=== PATIENT | female | born 1940 | race Hispanic/Latino ===

== ENCOUNTER 2016-10-30 10:44 | Emergency (ER) | payer OTHER ==
[2016-10-30] MEDS ORDERED: NORMAL SALINE 10 ML SYRINGE FLUSH IVP PRN (10:49)
[2016-10-30] MEDS ORDERED: Sodium Chloride 0.9% 1,000 ML PRIMARY IV ONE (10:49)
[2016-10-30 11:19] LABS: BILIRUBIN,URINE NEGATIVE (NEG); CLARITY,URINE CLEAR (CLEAR); GLUCOSE, URINE (UA) NEGATIVE (NEG); LEUKOCYTE ESTERASE ,URINE TRACE (NEG); NITRATE,URINE NEGATIVE (NEG); OCCULT BLOOD,URINE MODERATE (NEG); PROTEIN,URINE NEGATIVE (NEG); UROBILINOGEN,URINE 0.2 EU/dL (0.2)
[2016-10-30 11:26] LABS: BASOPHILS # (AUTO) 0.02 10*3/UL; BASOPHILS % (AUTO) 0.3 % (0-1); EOSINOPHILS % (AUTO) 0.6 % (0-8); HEMATOCRIT 37.1 % (37.0-47.0); HEMOGLOBIN 12.4 g/dL (12.0-16.0); IMM GRAN % (AUTO) 0.1 % (0-5); IMM GRAN# (AUTO) 0.01 10*3/UL; LYMPHOCYTES % (AUTO) 19.3 % (10-50); MEAN CORPUSCULAR HEMOGLOBIN 27.6 PG (27-31); MEAN CORPUSCULAR HGB CONC 33.4 g/dL (33-37); MEAN PLATELET VOLUME 9.5 FL (7.4-12.2); MONOCYTES # (AUTO) 0.39 10*3/UL (0.3-0.8); NEUTROPHILS # (AUTO) 5.82 10*3/UL; NEUTROPHILS % (AUTO) 74.7 % (50-80); WHITE BLOOD COUNT 7.79 10^3/uL (4.8-10.8)
[2016-10-30 11:28] LABS: PLATELET MORPHOLOGY COMMENT NORMAL MORPHOLOGY (NORM)
[2016-10-30 11:31] LABS: URINE SAMPLE TYPE CLEAN CATCH URINE
[2016-10-30 11:33] LABS: BACTERIA,URINE FEW; SQUAMOUS EPITHELIAL CELL,UR RARE
[2016-10-30 11:40] LABS: AMYLASE 116 U/L (30-110); ASPARTATE AMINO TRANSFERASE 19 IU/L (8-39); BILIRUBIN,TOTAL 0.8 mg/dL (0.3-1.2); BLOOD UREA NITROGEN 10 mg/dL (7-22); BUN/CREATININE RATIO 16.66 (6-20); CALCIUM 9.1 mg/dL (8.7-10.7); CHLORIDE 95 meq/L (98-112); CREATININE 0.6 mg/dL (0.50-1.20); GLUCOSE 131 mg/dL (78-110); POTASSIUM 4.1 meq/L (3.8-5.2); SODIUM 130 meq/L (135-145); TOTAL PROTEIN 7.5 g/dL (6.1-8.0)
[2016-10-30 11:44] LABS: C-REACTIVE PROTEIN < 0.5 mg/dL (0.0-0.9)
[2016-10-30] MEDS ORDERED: Fleet Enema w/Mineral Oil 133ml RECTAL ONE (11:58)
--- NOTE | 2016-10-30 12:15 | DI ---
HISTORY: Constipation. COMPARISON: None available. FINDINGS: There is abundant feces within the abdomen. There are clips in the right upper quadrant. No obvious free intraperitoneal air is identified. No specific evidence for obstruction. The stoma ch bubble is partially distended with air. IMPRESSION: 1. There is abundant feces within the abdomen. 2. There are clips in the right upper quadrant. 3. The stomach bubble is partially distended with air.
[2016-10-30 13:18] VITALS: RESP 16; TEMP 98.7
--- NOTE | 2016-10-30 22:28 | PDOC ---
Abdomen/Flank HPI - General Chief Complaint: Abdomen Pain Stated Complaint: CONSTIPATED Date Seen by Provider: 10/30/16 Time Seen by Provider: 10:50 Source: POSITIVE: Patient Exam Limitations: POSITIVE: No limitations Nurse's Notes Reviewed & Considered: Yes - History of Present Illness Initial Comments: The patient is a 76-year-old female who presents to the emergency department with the primary complaint of constipation. She states for the past several days she has had the urge to have a bowel movement however has been passing only small pellets. She states that she feels like she has a large amount of stool in her rectum. She tried to did this out on her own however was unable to have a bowel movement. She also has some lower abdominal pain associated with this. She has had nausea with no vomiting. She denies fevers or chills or urinary symptoms. She does take pain medication for previous compression fractures and chronic pain. She also has been taking MiraLAX without any success at alleviating her constipation recently. - Patient Home Medications Home Medications: Home Medications Lisinopril 1 tab ORAL BID #60 tab 05/18/16 Esomeprazole Magnesium [Nexium] 2 cap PO DAILY 05/28/16 Aspirin EC 325 mg PO DAILY #30 tab 05/30/16 Carvedilol [Coreg] 1 tab ORAL BID #60 tab 06/05/16 Denosumab [Prolia] 1 ml SUBCUT every 6 months #0 ml 06/13/16 Levothyroxine Sodium 1 tab ORAL QD #30 tab 07/06/16 Oxycodone HCl/Acetaminophen [Percocet 5-325 Mg Tablet] 1 each PO QID PRN #120 tab 09/29/16 Alprazolam 1 tab PO TID PRN #30 tab 10/19/16 Ondansetron Odt [Zofran ODT] 4 mg SL Q6H PRN #15 tablet 10/21/16 Cephalexin [Keflex] 500 mg PO TID #15 capsule 10/30/16 - Patient Allergies Allergies/Adverse Reactions: Allergies Allergy/AdvReac Type Severity Reaction Status Date / Time mirtazapine [From Remeron] AdvReac Intermediate slept for Verified 10/30/16 10: 59 days and speech deficit Past Medical History - heen HEENT History: Denies History Additional HEENT History: WEARS GLASSES Cardiovascular History: Hypertension Respiratory History: Denies History Gastrointestinal History: GERD, Gallbladder Disease Genitourinary History: Denies History Endocrine History: Hypothyroidism Musculoskeletal History: Osteoporosis Prosthesis or Implant: No Additional Musculoskeletal History: COMPRESSION FXS BACK Neurological History: Denies History Blood Disorders: Denies History Psychiatric History: Anixety Disorders History of Sexually Transmitted Diseases: No Cancer History: Denies History In Past Year Been Physically Harmed or Verbally Threatened: No History of MDRO: No History of Other Communicable Diseases: No Tobacco Use: Never Smoker Alcohol Use: None Substance Use Type: None Previous Surgical History: No Type / Date of Surgery: CHOLECYSTECTOMY Anesthesia Reactions: No Malignant Hyperthermia: No Significant Family History: No pertinent family hx Past Medical History Reviewed: Reviewed - No Changes ROS - Limitations ROS Limitations: No Limitations Constitution: DENIES: Chills, Fever Cardiovascular: REPORTS: Denies Cardiac Symptoms Respiratory: REPORTS: Denies Resp Symptoms Neurological: REPORTS: Denies Neuro Symptoms Gastrointestinal: REPORTS: Abdominal Pain, Nausea, Constipation. DENIES: Vomitting, Black Stools, Bloody Stools Musculoskeletal: REPORTS: Other (Chronic back pain) Genitourinary: REPORTS: Denies Symptoms Eyes: REPORTS: Denies Symptoms ENT: REPORTS: Denies Symptoms Skin: DENIES: Rash Abdominal/Flank Pain PE - General Appearance General Appearance: POSITIVE: Alert, Cooperative, No Acute Distress - HEENT HEENT: POSITIVE: Head Inspection Nml, Eyes Inspection Nml, Ears Inspection Nml, Nose Inspection Nml - Neck Neck: POSITIVE: Normal Inspection - Respiratory Respiratory: POSITIVE: No Respiratory Distress, Breath Sounds Normal - Cardiovascular Cardiovascular: POSITIVE: Regular Rate and Rhythm, Heart Sounds Normal - Abdomen Abdomen: Soft: (All Quadrants), Normal Bowel Sounds: (All Quadrants), No Guarding: (All Quadrants), No Rebound: (All Quadrants) Additional Abdominal Details: She does have tenderness in the lower quadrants bilaterally without guarding or rebound tenderness, no palpable mass - Back Back: NEGATIVE: CVA Tenderness (R), CVA Tenderness (L) - Skin Skin: POSITIVE: Intact, No Rash - Extremities Extremity: Normal ROM: (All Extremities), Normal Inspection: (All Extremities) - Neurological Neurological: POSITIVE: Other (No focal neurologic deficits) Abdomen Progress - Results Reviewed by me Xrays/CTs/US Reviewed by me: Yes Discussed with Radiologist: Yes Radiology Findings: Abdominal x-ray reveals fair amount of stool throughout especially in the lower colon per radiologist, no evidence of obvious obstruction. Lab Results Reviewed: Yes Lab Results:: Laboratory Results 10/30/16 10/30/16 Range/Units 11:07 11:16 WBC 7.79 (4.8-10.8) 10^3/uL RBC 4.50 (4.20-5.40) 10^6/uL Hgb 12.4 (12.0-16.0) g/dL Hct 37.1 (37.0-47.0) % MCV 82.4 (81-99) FL MCH 27.6 (27-31) PG MCHC 33.4 (33-37) g/dL RDW Std Deviation 41.3 (39-50) fL RDW Coeff of Kira 14.0 (11.5-14.5) % Plt Count 224 (140-350) 10*3/uL MPV 9.5 (7.4-12.2) FL Immature Gran % (Auto) 0.1 (0-5) % Neut % (Auto) 74.7 (50-80) % Lymph % (Auto) 19.3 (10-50) % [place] % (Auto) 5.0 (5-15) % Eos % (Auto) 0.6 (0-8) % Baso % (Auto) 0.3 (0-1) % Immature Gran # (Auto) 0.01 10*3/UL Neut # (Auto) 5.82 10*3/UL Lymph # (Auto) 1.50 10*3/uL [place] # (Auto) 0.39 (0.3-0.8) 10*3/UL Eos # (Auto) 0.05 10*3/UL Baso # (Auto) 0.02 10*3/UL WBC Morphology Comment Normal morphology (NORM) Plt Morphology Comment Normal morphology (NORM) RBC Morph Comment Normal morphology (NORM) Sodium 130 L (135-145) meq/L Potassium 4.1 (3.8-5.2) meq/L Chloride 95 L (98-112) meq/L Carbon Dioxide 24 (23-33) meq/L Anion Gap 11 (5-20) BUN 10 (7-22) mg/dL Creatinine 0.6 (0.50-1.20) mg/dL Estimated GFR (>60 ml/min/1.73m(2)) BUN/Creatinine Ratio 16.66 (6-20) Glucose 131 H (78-110) mg/dL Calculated Osmolality 270.0 (267-292) mOsm/kg Calcium 9.1 (8.7-10.7) mg/dL Total Bilirubin 0.8 (0.3-1.2) mg/dL AST 19 (8-39) IU/L ALT 30 (9-52) IU/L Alkaline Phosphatase 55 (38-126) IU/L C-Reactive Protein < 0.5 (0.0-0.9) mg/dL Total Protein 7.5 (6.1-8.0) g/dL Albumin 4.5 (3.5-4.8) g/dL Globulin 3.0 (2.50-4.10) g/dL Albumin/Globulin Ratio 1.50 (1.3-2.0) mg/g Amylase 116 H (30-110) U/L Lipase 181 (23-300) IU/L Ur Collection Type Clean catch urine Urine Color Yellow Urine Clarity Clear (CLEAR) Urine pH 7.0 (5.0-8.5) Ur Specific [place] 1.010 (1.005-1.030) Urine Protein Negative (NEG) mg/dl Urine Glucose (UA) Negative (NEG) mg/dL Urine Ketones Negative (NEG) Urine Occult Blood Moderate H (NEG) Urine Nitrate Negative (NEG) Urine Bilirubin Negative (NEG) Urine Urobilinogen 0.2 (0.2) EU/dL Ur Leukocyte Esterase Trace (NEG) Urine RBC 5-10 (NONE) /hpf Urine WBC 5-10 (NONE) Ur Squamous Epith Cells Rare (NONE) Ur Renal Epithelial Cell None (NONE) Urine Crystals None Urine Bacteria Few (NONE) Urine Casts None (NONE) Urine Mucus None (NONE) Urine Trichomonas None (NONE) Urine Yeast None (NONE) Ur Culture Indicated? Culture set - Patient's Progress MDM / ED Course: The patient's lab work is essentially unremarkable and her abdominal x-rays consistent with constipation. She was given a fleets mineral oil enema with results of a large amount of stool. The patient stated that she felt significantly better. Her constipation is likely secondary to chronic narcotic usage. She was advised to restart MiraLAX regularly along with increased fluid intake. Her urinalysis did reveal some leukocytes and was set up for culture. She was started on Keflex for treatment of potential UTI with culture pending. She is advised return to the emergency room if she develops increased abdominal pain, fever, any worsening or change in symptoms. She will follow-up with primary care in 3-5 days. - Consult Counseled: POSITIVE: Patient, Family, RE: Lab Results, RE: Radiology Results, RE : DX, RE: Need for F/U Patient Care Time - Estimated PCT Patient Care Time (In Minutes): 35 Vital Signs - VS Reviewed Vital Signs Reviewed: Yes Discharge Clinical Impression: Constipation Condition: Stable Prescriptions / Orders: Cephalexin [Keflex] 500 mg PO TID #15 capsule Patient Instructions Given at Discharge: Constipation (ED) Additional Instructions: The constipation is likely secondary to the use of chronic narcotic pain medication. The enema seems to have relieved the immediate issue. Recommend continuation of MiraLAX daily taken with regular fluids. Return to the emergency room if increased abdominal pain, fever, any worsening or change in symptoms. Follow-up with primary care in 7-10 days. Follow Up With: CARYN COREA [Primary Care Provider] -
== END 2016-10-30 14:04 | disposition home or self-care (01) ==
LOC: ER 10:44
DX: K59.00 Constipation, unspecified (principal); R10.32 Left lower quadrant pain; R10.31 Right lower quadrant pain
CPT/HCPCS: 74000; 80053; 81001; 81003; 82150; 83690; 85025; 86140; 87088; 99283; J7030

== ENCOUNTER → 2016-11-14 | Outpatient (CLI) | payer OTHER | LOC: MMPC 11:11 | PROVIDERS: ATTEND Internal Medicine | DX: K59.03 Drug induced constipation (principal); M54.9 Dorsalgia, unspecified; R62.7 Adult failure to thrive; E03.9 Hypothyroidism, unspecified; M81.0 Age-related osteoporosis without current pathological fracture; Z02.89 Encounter for other administrative examinations | CPT/HCPCS: 99214 ==

== ENCOUNTER → 2016-11-16 | Outpatient (CLI) | payer OTHER | LOC: MMPC 11:11 | DX: R30.0 Dysuria (principal) | CPT/HCPCS: 81002; G0463; 99212 ==

== ENCOUNTER → 2016-11-17 | Outpatient (CLI) | payer OTHER | LOC: MOB LAB 07:47 | DX: R30.0 Dysuria (principal); R82.99 Other abnormal findings in urine | CPT/HCPCS: 87077; 87088; 87186 ==

== ENCOUNTER 2016-12-11 11:52 | Emergency (ER) | payer OTHER ==
[2016-12-11] MEDS ORDERED: NORMAL SALINE 10 ML SYRINGE FLUSH IVP PRN (12:33)
[2016-12-11 12:34] VITALS: RESP 16; TEMP 98
[2016-12-11 12:40] LABS: BASOPHILS # (AUTO) 0.01 10*3/UL; BASOPHILS % (AUTO) 0.2 % (0-1); EOSINOPHILS % (AUTO) 0.6 % (0-8); HEMATOCRIT 35.2 % (37.0-47.0); HEMOGLOBIN 11.9 g/dL (12.0-16.0); IMM GRAN % (AUTO) 0 % (0-5); IMM GRAN# (AUTO) 0 10*3/UL; LYMPHOCYTES # (AUTO) 1.38 10*3/uL; LYMPHOCYTES % (AUTO) 27.3 % (10-50); MEAN CORPUSCULAR HEMOGLOBIN 28.5 PG (27-31); MEAN CORPUSCULAR HGB CONC 33.8 g/dL (33-37); MEAN PLATELET VOLUME 9.9 FL (7.4-12.2); MONOCYTES # (AUTO) 0.19 10*3/UL (0.3-0.8); MONOCYTES % (AUTO) 3.8 % (5-15); NEUTROPHILS # (AUTO) 3.44 10*3/UL; NEUTROPHILS % (AUTO) 68.1 % (50-80); RDW COEFFICIENT OF VARIATION 13.5 % (11.5-14.5); RED BLOOD COUNT 4.18 10^6/uL (4.20-5.40); WHITE BLOOD COUNT 5.05 10^3/uL (4.8-10.8)
[2016-12-11 12:43] LABS: PLATELET MORPHOLOGY COMMENT NORMAL MORPHOLOGY (NORM)
[2016-12-11 12:45] LABS: BUN/CREATININE RATIO 23.33 (6-20); CALCIUM 9.6 mg/dL (8.7-10.7); CREATININE 0.6 mg/dL (0.50-1.20); POTASSIUM 4.2 meq/L (3.8-5.2)
[2016-12-11 12:57] LABS: BILIRUBIN,URINE NEGATIVE (NEG); CLARITY,URINE CLEAR (CLEAR); GLUCOSE, URINE (UA) NEGATIVE (NEG); LEUKOCYTE ESTERASE ,URINE TRACE (NEG); NITRATE,URINE NEGATIVE (NEG); OCCULT BLOOD,URINE NEGATIVE (NEG); PH,URINE 6.5 (5.0-8.5); PROTEIN,URINE NEGATIVE (NEG)
[2016-12-11 13:04] LABS: RBC,URINE 0 /hpf; SQUAMOUS EPITHELIAL CELL,UR FEW; URINE SAMPLE TYPE CLEAN CATCH URINE; WBC,URINE 0-1
[2016-12-11 13:05] LABS: BACTERIA,URINE FEW
--- NOTE | 2016-12-11 13:50 | DI ---
XR ABDOMEN KUB UPRIGHT,12/11/2016 12:33 PM: Clinical History: Bloating Previous Exam: October 30, 2016 Findings: 2 views of the abdomen are obtained, and demonstrate a nonobstructive bowel gas pattern. Again noted is a large amount of stool throughout the colon and large amount of air throughout the co keo and small bowel. Patient is status post cholecystectomy. Lung bases are clear. There is a stable compression deformity of the third lumbar vertebral body. Impression: Increasing amount of stool throughout the colon and small bowel.
--- NOTE | 2016-12-11 14:34 | PDOC ---
General Adult HPI - General Chief Complaint: General Medical Stated Complaint: DIZZY AND NOT FEELING WELL Date Seen by Provider: 12/11/16 Time Seen by Provider: 12:00 - History of Present Illness Initial Comment: Patient is a very nice 76-year-old woman who comes into the emergency Department complaining about some weakness anxiety and being out of her Xanax and some constipation. She recently stopped taking MiraLAX because she was on an antibiotic for UTI and has developed substantial constipation since that time. She also is feeling somewhat weak and wiped out she's not sure exactly what's causing that. She does use chronic pain medication as well as a few other medications. She is also concerned as she just ran out of her Xanax and she says be 3 days before she gets any refills of Xanax and she doesn't think she can tolerate being without that either. Have you received a tetanus shot in the past 10 years?: Yes - Patient Home Medications Home Medications: Home Medications Lisinopril 1 tab ORAL BID #60 tab 05/18/16 Esomeprazole Magnesium [Nexium] 2 cap PO DAILY 05/28/16 Aspirin EC 325 mg PO DAILY #30 tab 05/30/16 Denosumab [Prolia] 1 ml SUBCUT every 6 months #0 ml 06/13/16 Levothyroxine Sodium 1 tab ORAL QD #30 tab 07/06/16 Ondansetron Odt [Zofran ODT] 4 mg SL Q6H PRN #15 tablet 10/21/16 Alprazolam 1 tab PO TID PRN #90 tab 11/14/16 Linaclotide [Linzess] 1 cap PO QPM #90 cap 11/14/16 Oxycodone HCl/Acetaminophen [Percocet 5-325 Mg Tablet] 1 each PO QID PRN #120 tab 11/14/16 Fluconazole [Diflucan] 1 tab PO DAILY #7 tab 11/20/16 Alprazolam [Xanax] 0.5 mg PO TID #20 tab 12/11/16 Carvedilol [Coreg] 1 tab ORAL BID #60 tab 12/11/16 Polyethylene Glycol 3350 [Miralax] 17 gm PO DAILY #30 powd.pack 12/11/16 - Patient Allergies Allergies/Adverse Reactions: Allergies Allergy/AdvReac Type Severity Reaction Status Date / Time mirtazapine [From Remeron] AdvReac Intermediate slept for Verified 12/11/16 11: 52 days and speech deficit Past Medical History - heen HEENT History: Denies History Additional HEENT History: WEARS GLASSES Cardiovascular History: Hypertension Respiratory History: Denies History Gastrointestinal History: GERD, Gallbladder Disease Additional Gastrointestinal History: IBS (?) Genitourinary History: Denies History Endocrine History: Hypothyroidism Musculoskeletal History: Osteoporosis Prosthesis or Implant: No Additional Musculoskeletal History: COMPRESSION FXS BACK Neurological History: Denies History Blood Disorders: Denies History Psychiatric History: Anxiety Disorders History of Sexually Transmitted Diseases: No Cancer History: Denies History In Past Year Been Physically Harmed or Verbally Threatened: No History of MDRO: No History of Other Communicable Diseases: No Tobacco Use: Never Smoker Alcohol Use: None Substance Use Type: None Previous Surgical History: No Type / Date of Surgery: CHOLECYSTECTOMY Anesthesia Reactions: No Malignant Hyperthermia: No Significant Family History: No pertinent family hx Past Medical History Reviewed: Reviewed - No Changes ROS - Limitations ROS Limitations: No Limitations Constitution: REPORTS: Denies Symptoms Cardiovascular: REPORTS: Denies Cardiac Symptoms Respiratory: REPORTS: Denies Resp Symptoms Neurological: REPORTS: Denies Neuro Symptoms Musculoskeletal: REPORTS: Denies MS Symptoms General Adult Exam - General Appearance General Appearance: POSITIVE: Alert, Cooperative, No Acute Distress - HEENT HEENT: POSITIVE: Head Inspection Nml, Eyes Inspection Nml, Ears Inspection Nml - Neck Neck: POSITIVE: Normal Inspection - Respiratory Respiratory: POSITIVE: No Respiratory Distress, Breath Sounds Normal - Cardiovascular Cardiovascular: POSITIVE: Regular Rate & Rhythm, No Murmur - Abdomen Abdomen: Soft: (All Quadrants), Normal Bowel Sounds: (All Quadrants) Additional Abdominal Details: She has some mild diffuse tenderness through her abdomen. - Neurological / Psychological Neurological: POSITIVE: Affect Apporpriate, Oriented X3 General Adult Progress - Results Reviewed by me Xrays/CTs/US Reviewed by me: Yes Radiology Findings: Substantial stool burden in the colon and into the small bowel Lab Results Reviewed: Yes Lab Results:: Laboratory Results 12/11/16 12/11/16 Range/Units 12:37 12:45 WBC 5.05 (4.8-10.8) 10^3/uL RBC 4.18 L (4.20-5.40) 10^6/uL Hgb 11.9 L (12.0-16.0) g/dL Hct 35.2 L (37.0-47.0) % MCV 84.2 (81-99) FL MCH 28.5 (27-31) PG MCHC 33.8 (33-37) g/dL RDW Std Deviation 40.9 (39-50) fL RDW Coeff of K[place] 13.5 (11.5-14.5) % Plt Count 236 (140-350) 10*3/uL MPV 9.9 (7.4-12.2) FL Immature Gran % (Auto) 0 (0-5) % Neut % (Auto) 68.1 (50-80) % Lymph % (Auto) 27.3 (10-50) % [place] % (Auto) 3.8 L (5-15) % Eos % (Auto) 0.6 (0-8) % Baso % (Auto) 0.2 (0-1) % Immature Gran # (Auto) 0 10*3/UL Neut # (Auto) 3.44 10*3/UL Lymph # (Auto) 1.38 10*3/uL [place] # (Auto) 0.19 L (0.3-0.8) 10*3/UL Eos # (Auto) 0.03 10*3/UL Baso # (Auto) 0.01 10*3/UL WBC Morphology Comment Normal morphology (NORM) Plt Morphology Comment Normal morphology (NORM) RBC Morph Comment Normal morphology (NORM) Sodium 133 L (135-145) meq/L Potassium 4.2 (3.8-5.2) meq/L Chloride 99 (98-112) meq/L Carbon Dioxide 23 (23-33) meq/L Anion Gap 11 (5-20) BUN 14 (7-22) mg/dL Creatinine 0.6 (0.50-1.20) mg/dL Estimated GFR (>60 ml/min/1.73m(2)) BUN/Creatinine Ratio 23.33 H (6-20) Glucose 134 H (78-110) mg/dL Calculated Osmolality 278.0 (267-292) mOsm/kg Calcium 9.6 (8.7-10.7) mg/dL Ur Collection Type Clean catch urine Urine Color Yellow Urine Clarity Clear (CLEAR) Urine pH 6.5 (5.0-8.5) Ur Specific [place] 1.010 (1.005-1.030) Urine Protein Negative (NEG) mg/dl Urine Glucose (UA) Negative (NEG) mg/dL Urine Ketones Negative (NEG) Urine Occult Blood Negative (NEG) Urine Nitrate Negative (NEG) Urine Bilirubin Negative (NEG) Urine Urobilinogen 1.0 (0.2) EU/dL Ur Leukocyte Esterase Trace (NEG) Urine RBC 0 (NONE) /hpf Urine WBC 0-1 (NONE) Ur Squamous Epith Cells Few (NONE) Ur Renal Epithelial Cell None (NONE) Urine Crystals None Urine Bacteria Few (NONE) Urine Casts None (NONE) Urine Mucus None (NONE) Urine Trichomonas None (NONE) Urine Yeast None (NONE) Ur Culture Indicated? Culture not set - Patient's Progress MDM / ED Course: This patient has relatively benign labs and her x-ray does show substantial constipation. She was given an enema had good result she is willing and able to go back onto MiraLAX therapy and she is feeling much better here after some fluid and an enema. She is also quite concerned about her Xanax I will go ahead and give her a supply Xanax to get her through until she can talk with her primary care provider again. Otherwise she seems to be doing well. 0 Patient Care Time - Estimated PCT Patient Care Time (In Minutes): 30 Vital Signs - Recent Vital Signs Vital Signs: Vital Signs (Last 8 hours) Temp Pulse Resp BP Pulse Ox 12/11/16 11:52 98 F 63 16 148/66 95 - VS Reviewed Vital Signs Reviewed: Yes Discharge Clinical Impression: Generalized anxiety disorder Constipation Qualifiers: Constipation type: unspecified constipation type Qualifier Code: (K59.00) Constipation, unspecified Discharge Disposition: Discharged to Home Condition: Good Prescriptions / Orders: Polyethylene Glycol 3350 [Miralax] 17 gm PO DAILY #30 powd.pack Alprazolam [Xanax] 0.5 mg PO TID #20 tab Patient Instructions Given at Discharge: Constipation (ED), Anxiety (ED) Follow Up With: CARYN COREA [Primary Care Provider] -
== END 2016-12-11 14:40 | disposition home or self-care (01) ==
LOC: ER 11:52
DX: K59.00 Constipation, unspecified (principal); F41.9 Anxiety disorder, unspecified; R53.1 Weakness
CPT/HCPCS: 74020; 80048; 81001; 81003; 85025; 99283

== ENCOUNTER → 2016-12-15 | Outpatient (CLI) | payer OTHER | LOC: MMPC 11:11 | PROVIDERS: ATTEND Internal Medicine | DX: M81.0 Age-related osteoporosis without current pathological fracture (principal) | CPT/HCPCS: G0463; J0897 ==

== ENCOUNTER → 2017-02-19 | Outpatient (CLI) | payer OTHER ==
[2017-02-19 12:24] LABS: BASOPHILS # (AUTO) 0.01 10*3/UL; BASOPHILS % (AUTO) 0.2 % (0-1); EOSINOPHILS # (AUTO) 0.03 10*3/UL; EOSINOPHILS % (AUTO) 0.6 % (0-8); HEMATOCRIT 35.5 % (37.0-47.0); HEMOGLOBIN 11.5 g/dL (12.0-16.0); LYMPHOCYTES # (AUTO) 1.53 10*3/uL; MEAN CORPUSCULAR HEMOGLOBIN 28.3 PG (27-31); MEAN CORPUSCULAR HGB CONC 32.4 g/dL (33-37); MEAN CORPUSCULAR VOLUME 87.2 FL (81-99); MEAN PLATELET VOLUME 9.8 FL (7.4-12.2); MONOCYTES # (AUTO) 0.23 10*3/UL (0.3-0.8); MONOCYTES % (AUTO) 4.9 % (5-15); NEUTROPHILS # (AUTO) 2.84 10*3/UL; NEUTROPHILS % (AUTO) 61.2 % (50-80); PLATELET MORPHOLOGY COMMENT NORMAL MORPHOLOGY (NORM); RBC MORPHOLOGY COMMENT NORMAL MORPHOLOGY (NORM); RED BLOOD COUNT 4.07 10^6/uL (4.20-5.40); WBC MORPHOLOGY COMMENT NORMAL MORPHOLOGY (NORM)
[2017-02-19 12:41] LABS: BUN/CREATININE RATIO 21.66 (6-20); CALCIUM 9.3 mg/dL (8.7-10.7); SERUM ALBUMIN 4.2 g/dL (3.5-4.8)
== END ==
LOC: LAB 12:11
PROVIDERS: ATTEND Internal Medicine
DX: I10 Essential (primary) hypertension (principal); E03.9 Hypothyroidism, unspecified; E78.5 Hyperlipidemia, unspecified; M81.0 Age-related osteoporosis without current pathological fracture; R62.7 Adult failure to thrive
CPT/HCPCS: 36415; 80053; 82306; 84443; 85025

== ENCOUNTER → 2017-02-28 | Outpatient (CLI) | payer OTHER | LOC: MMPC 11:11 | PROVIDERS: ATTEND Internal Medicine | DX: I10 Essential (primary) hypertension (principal); M54.5 Low back pain | CPT/HCPCS: 99214; G0463 ==

== ENCOUNTER → 2017-04-24 | Outpatient (CLI) | payer OTHER | LOC: MMPC 11:11 | PROVIDERS: ATTEND Internal Medicine | DX: I10 Essential (primary) hypertension (principal) | CPT/HCPCS: 99214; G0463 ==

== ENCOUNTER 2017-06-20 11:14 | Emergency (ER) | payer OTHER ==
[2017-06-20 11:51] VITALS: RESP 16; TEMP 98
--- NOTE | 2017-06-20 11:57 | PDOC ---
Abdomen/Flank HPI - General Chief Complaint: Abdomen Pain Stated Complaint: ABDOMINAL DISCOMFORT Date Seen by Provider: 06/20/17 Time Seen by Provider: 11:51 - History of Present Illness Initial Comments: This patient is very nice 77-year-old woman well known to myself from previous visits to the emergency department. Today she comes in saying that she's had no stool for about 3 or 4 days. She feels like she is constipated is only able to get a small stool pebble out every now and then. She would like to have assistance by way of enema. - Patient Home Medications Home Medications: Home Medications Esomeprazole Magnesium [Nexium] 2 cap PO DAILY 05/28/16 Aspirin EC 325 mg PO DAILY #30 tab 05/30/16 Denosumab [Prolia] 1 ml SUBCUT every 6 months #0 ml 06/13/16 Ondansetron Odt [Zofran ODT] 4 mg SL Q6H PRN #15 tablet 10/21/16 Fluconazole [Diflucan] 1 tab PO DAILY #7 tab 11/20/16 Polyethylene Glycol 3350 [Miralax] 17 gm PO DAILY #30 powd.pack 12/11/16 Mirtazapine 1 tab PO QHS #30 tab 12/12/16 Clonazepam 1 tab PO TID PRN #90 tab 02/28/17 Carvedilol [Coreg] 1 tab ORAL BID #60 tab 04/02/17 Lisinopril 1 tab ORAL BID #60 tab 04/13/17 Amlodipine Besylate 1 tab PO DAILY #30 tab 04/24/17 Oxycodone HCl/Acetaminophen [Percocet 5-325 Mg Tablet] 1 each PO QID PRN #120 tab 04/24/17 Levothyroxine Sodium 1 tab ORAL QD #30 tab 05/29/17 - Patient Allergies Allergies/Adverse Reactions: Allergies Allergy/AdvReac Type Severity Reaction Status Date / Time mirtazapine [From Remeron] AdvReac Intermediate slept for Verified 12/11/16 11: 52 days and speech deficit Past Medical History - heen HEENT History: Denies History Additional HEENT History: WEARS GLASSES Cardiovascular History: Hypertension Respiratory History: Denies History Gastrointestinal History: GERD, Gallbladder Disease Additional Gastrointestinal History: IBS (?) Genitourinary History: Denies History Endocrine History: Hypothyroidism Musculoskeletal History: Osteoporosis Prosthesis or Implant: No Additional Musculoskeletal History: COMPRESSION FXS BACK Neurological History: Denies History Blood Disorders: Denies History Psychiatric History: Anxiety Disorders History of Sexually Transmitted Diseases: No LMP: 35 years ago Cancer History: Denies History In Past Year Been Physically Harmed or Verbally Threatened: No History of MDRO: No History of Other Communicable Diseases: No Tobacco Use: Never Smoker Alcohol Use: None Substance Use Type: None Previous Surgical History: No Type / Date of Surgery: CHOLECYSTECTOMY Anesthesia Reactions: No Malignant Hyperthermia: No Significant Family History: No pertinent family hx Past Medical History Reviewed: Reviewed - No Changes ROS - Limitations ROS Limitations: No Limitations Constitution: REPORTS: Denies Symptoms Cardiovascular: REPORTS: Denies Cardiac Symptoms Respiratory: REPORTS: Denies Resp Symptoms Neurological: REPORTS: Denies Neuro Symptoms Abdominal/Flank Pain PE - General Appearance General Appearance: POSITIVE: Alert, Cooperative, No Acute Distress - HEENT HEENT: POSITIVE: Head Inspection Nml, Eyes Inspection Nml - Neck Neck: POSITIVE: Normal Inspection - Respiratory Respiratory: POSITIVE: No Respiratory Distress - Cardiovascular Cardiovascular: POSITIVE: Regular Rate and Rhythm - Abdomen Abdomen: Soft: (All Quadrants), Normal Bowel Sounds: (All Quadrants), Denies Tenderness: (All Quadrants) Abdomen Progress - Patient's Progress MDM / ED Course: Patient was given fleets enema she's feeling much better now. She did have significant stooling results. We discussed different options in regards to keeping her stools more regular and she is to follow-up with her primary care provider Patient Care Time - Estimated PCT Patient Care Time (In Minutes): 25 Vital Signs - Recent Vital Signs Vital Signs: Vital Signs (Last 8 hours) Temp Pulse Resp BP Pulse Ox 06/20/17 11:26 98 F 61 16 141/69 98 - VS Reviewed Vital Signs Reviewed: Yes Discharge Clinical Impression: Acute constipation Discharge Disposition: Discharged to Home Condition: Stable Patient Instructions Given at Discharge: Constipation (ED) Additional Instructions: Increase daily fiber intake Drink plenty of fluids to keep herself regular Consider [id number] MiraLAX 17 g daily to help with constipation Feel free to use [id number] constipation medications such as milk of magnesia or Dulcolax or any others to help with your constipation Follow-up with your primary care provider in the next few days for reevaluation Follow Up With: CARYN COREA [Primary Care Provider] -
[2017-06-20] MEDS ORDERED: Fleet Enema 133ml RECTAL ONE (13:14)
== END 2017-06-20 14:37 | disposition home or self-care (01) ==
LOC: ER 11:14
DX: K59.00 Constipation, unspecified (principal); I10 Essential (primary) hypertension
CPT/HCPCS: 99282

== ENCOUNTER 2017-07-24 10:48 | Observation (INO) ==
[2017-07-24] MEDS ORDERED: ONDANSETRON 4 MG/2 ML VIAL IVP ONE (11:03)
[2017-07-24] MEDS ORDERED: NORMAL SALINE 10 ML SYRINGE FLUSH IVP PRN (11:03)
[2017-07-24] MEDS ORDERED: oxyCODONE/APAP 7.5/325 Tab 1 TAB TAB PO ONE (11:07)
[2017-07-24 11:59] LABS: BASOPHILS # (AUTO) 0.02 10*3/UL; BASOPHILS % (AUTO) 0.4 % (0-1); EOSINOPHILS # (AUTO) 0.19 10*3/UL; EOSINOPHILS % (AUTO) 3.7 % (0-8); Hematocrit [HCT] 34.7 % (37.0-47.0); Hemoglobin [HGB] 11.5 g/dL (12.0-16.0); MEAN CORPUSCULAR HEMOGLOBIN 28.5 PG (27-31); MEAN CORPUSCULAR HGB CONC 33.1 g/dL (33-37); MEAN CORPUSCULAR VOLUME 86.1 FL (81-99); MEAN PLATELET VOLUME 10.8 FL (7.4-12.2); MONOCYTES # (AUTO) 0.28 10*3/UL (0.3-0.8); MONOCYTES % (AUTO) 5.5 % (5-15); NEUTROPHILS # (AUTO) 3.12 10*3/UL; NEUTROPHILS % (AUTO) 60.9 % (50-80); RED BLOOD COUNT 4.03 10^6/uL (4.20-5.40)
[2017-07-24 12:00] LABS: PLATELET MORPHOLOGY COMMENT NORMAL MORPHOLOGY (NORM); RBC MORPHOLOGY COMMENT NORMAL MORPHOLOGY (NORM); WBC MORPHOLOGY COMMENT NORMAL MORPHOLOGY (NORM)
[2017-07-24 12:09] LABS: BLOOD UREA NITROGEN 14 mg/dL (7-22); BUN/CREATININE RATIO 23.33 (6-20); SERUM ALBUMIN 4.3 g/dL (3.5-4.8)
--- NOTE | 2017-07-24 12:11 | EKG ---
[address] [address] Measurements Intervals [place] Rate: 57 P: 89 MS: 200 QRS: 84 QRSD: 93 T: 68 QT: 415 QTc: 408 Interpretive Statements SINUS BRADYCARDIA Compared to ECG 05/28/2016 10:28:57 Sinus rhythm no longer present Electronically Signed On 07-24-17 12:21:39 MDT by Yossi Ford [email or web address]
--- NOTE | 2017-07-24 13:06 | DI ---
CT HEAD SCAN WITHOUT IV CONTRAST, 07/24/2017 11:03 AM : Clinical History: Transient ischemic attack. Previous Exam: 05/28/2016. Scans are obtained from the foramen magnum to the vertex without IV contrast. The 4th, 3rd, and lateral ventricles are of normal size, shape, position, and contour for the patient 's age. There are no abnormal areas of increased or decreased density. There is moderate cerebellar a nd cerebral atrophy. There are no extracerebral mantles or shift of the midline structures. Bone wind ow evaluation is normal. The paranasal sinuses are normal. READIN. There is no evidence of an acute hemorrhagic or bland infarct. 2. Moderate cerebellar and cerebral atrophy. 3. There has been no interval change.
[2017-07-24] MEDS ORDERED: ASPIRIN 81 MG (BABY) CHEWABLE TABLET PO ONE ×3 (14:21→16:45)
--- NOTE | 2017-07-24 15:42 | DI ---
MRI BRAIN SCAN WITHOUT IV CONTRAST, 07/24/2017 2:21 PM: Clinical History: TIA. Previous Exam: None at this facility. Sequences: Sagittal T1; Axial MUNIR T2 and FLAIR. Axial diffusion weighted images with ADC mapping were also performed. The 4th, 3rd, and lateral ventricles are of normal size, shape, position, and contour for this patien t's age. There is no evidence of an acute hemorrhagic or bland infarct. There are a few multiple punc herron periventricular white matter hyperintensities bilaterally that extend into the watershed territo ry, consistent with mild small vessel ischemic disease. This amount of ischemic disease is appropriat e for the patient's age. The cerebellar tonsils are at the level of the foramen magnum but do not ayan cending below the foramen magnum. There is mild cerebellar and mild to moderate cerebral atrophy. Dif fusion weighted imaging with ADC mapping is normal. There are no extracerebral mantels or shift of th e midline structures. The paranasal sinuses are normal. Readin. There is no acute bland or hemorrhagic infarct. Mild small vessel ischemic disease is present. 2. Mild cerebellar and mild to moderate cerebral atrophy. 3. Diffusion weighted imaging with ADC mapping is normal.
--- NOTE | 2017-07-24 16:49 | DI ---
MR ANGIOGRAPHY OF THE [place], 07/24/2017 2:21 PM: Clinical History: TIA. Previous Exam: None at this facility. High resolution axial 3D thin slice time of flight scans are performed for the arterial phase. 3D MIP S reconstructions are obtained. The left vertebral artery is dominant. There is no basilar tip aneurysm or aneurysm arising from the vertebral-basilar branches. There are irregularities bilaterally at the junction between the internal carotid artery at the base of the skull and in the petrous portions of the internal carotid arteries . These irregularities are consistent with plaques but there is no significant stenosis on either juan francisco e. There are no identifiable posterior communicating arteries. The anterior communicating artery is a tretic but normal. The A1and A2, and the M1 through M3 branches bilaterally are normal. Reading: Normal MR angiogram scan of the [place].
--- NOTE | 2017-07-24 16:58 | DI ---
MR ANGIOGRAM OF THE NECK, 07/24/2017 2:21 PM: Clinical History: TIA. Previous Exam: None at this facility. Axial 3D TOF and coronal SSFP images are reconstructed into a 3D MIP format. Scans are performed from below the sternal notch to of the neck to the base of the skull without cont rast. The common carotid arteries are normal from their origins to the bifurcations. The internal and exter nal carotid arteries in the neck region are normal. The internal carotid arteries from the base of th e skull to the cavernous sinuses are also normal except for irregularity is at the junction between t he internal carotid arteries in the neck and the petrous portions in the base of the skull. These wer e shown to represent small plaques without significant stenoses. Both vertebral arteries are visualiz ed and are normal. The left vertebral artery is the dominant vessel. READING: Normal MR angiogram of the carotid and vertebral arteries of the neck. No significant occlusive vascu lar disease is identified.
[2017-07-24] MEDS ORDERED: CLOPIDOGREL 75 MG TABLET PO ONE (17:06)
[2017-07-24] MEDS: oxyCODONE/APAP 7.5/325 Tab 1 TAB TAB PO SCH (19:41)
[2017-07-24] MEDS ORDERED: Mirtazapine Tab 7.5 MG TABLET PO SCH (21:00)
--- NOTE | 2017-07-24 22:38 | PDOC ---
HPI - History of Present Illness Date and Time of Service: 07/24/2017, 3 Chief Complaint: Right facial droop History of Present Illness: This very pleasant 77-year-old female that has failure to thrive, chronic pain, hypertension, amongst other problems. She came in today for evaluation for sudden onset of right facial droop and right arm weakness that was about 10 minutes in duration. It resolved by the time I saw the patient. I saw her earlier today. She does not recall having these symptoms before. She is on an aspirin daily. Her EKG did not show any signs of atrial fibrillation. Her head CT was negative for any acute bleed. I was able to admit the patient and arrange for brain MRI scan and an MRA of the head and neck and they were negative for acute stroke or any carotid artery disease or cerebral vascular disease. The patient does not have any known seizure disorder. Her symptoms have completely resolved. We cannot get an echocardiogram until tomorrow. The patient's blood pressures to hear very well controlled at this time and she is requesting pain medications for her chronic back pain. There were no exacerbating factors and the patient really had no recall of the event. Her was not available shooting at the time of my evaluation. He had just left for home as I had entered the room to see the patient. Aside from the patient being brought in for evaluation at the emergency room, I am not aware of any interventions tried. The symptoms resolved very quickly and the patient was ruled out as a TPA candidate for that reason. Past Medical History Medical History: 1. Failure to thrive with weight loss, currently 76 pounds today. 2. Protein calorie malnutrition. 3. Vitamin B12 deficiency. 4. Hypothyroidism. 5. Polymyalgia rheumatica, on prednisone 10 mg daily. 6. Lumbar compression fractures which caused chronic pain syndrome Surgical History: 1. Cholecystectomy. 2. Bladder surgery. 3. Colonoscopy Pertinent Family History: She has a sister that of breast cancer and positive family history for diabetes. Past Social History: Does not smoke or drink. . Has one son. Tobacco Use: Never Smoker Do you dip or chew tobacco: No In the Past 12 Months, Have Used or Abuse Any of the Following Substance: None Alcohol Use: None Medication / Allergies Home Medications: Home Medications Medication Instructions Recorded Confirmed Type Esomeprazole Magnesium [Nexium] 2 cap PO DAILY 05/28/16 07/24/17 History Aspirin EC 325 mg PO DAILY #30 tab 05/30/16 07/24/17 Rx Denosumab [Prolia] 1 ml SUBCUT every 6 months #0 ml 06/13/16 07/24/17 History Ondansetron Odt [Zofran ODT] 4 mg SL Q6H PRN #15 tab 10/21/16 07/24/17 Rx Polyethylene Glycol 3350 [Miralax] 17 gm PO DAILY #30 powd.pack 12/11/16 Rx Clonazepam 1 tab PO TID PRN #90 tab 02/28/17 06/20/17 Clinic Carvedilol [Coreg] 1 tab ORAL BID #60 tab 04/02/17 07/24/17 Rx Lisinopril 1 tab ORAL BID #60 tab 04/13/17 07/24/17 Rx Amlodipine Besylate 1 tab PO DAILY #30 tab 04/24/17 07/24/17 Rx Oxycodone HCl/Acetaminophen 1 ea PO QID PRN #120 tab 04/24/17 06/20/17 Clinic [Percocet 5-325 Mg Tablet] Levothyroxine Sodium 1 tab ORAL QD #30 tab 05/29/17 07/24/17 Rx Clonazepam 1 tab PO TID PRN #90 tab 06/25/17 07/24/17 Clinic Linaclotide [Linzess] Sample #24 06/25/17 Clinic Oxycodone HCl/Acetaminophen 1 tab PO Q6H #120 tab 06/25/17 07/24/17 Clinic [Oxycodon-Acetaminophen 7.5-325] promethazine 6.25 mg/5 mL syrup 12.5 mg PO Q4-6H PRN #240 ml 07/10/17 07/24/17 Rx Allergies/Adverse Reactions: Allergies 3 Allergy/AdvReac Type Severity Reaction Status Date / Time mirtazapine [From Remeron] AdvReac Intermediate slept for Verified 07/17/17 17: 46 days and speech deficit Review of Systems - Constitutional Constitutional: REPORTS: General Health Poor, Weight Loss (The patient thinks she may have actually gained some weight, although the last weight I have recorded was around 80 pounds.) - Respiratory Respiratory: REPORTS: Negative System Review - Cardiovascular Cardiovascular: REPORTS: Negative System Review - Gastrointestinal Gastrointestinal / Abdominal: REPORTS: Constipation (Has had bad problems with constipation lately and has had a couple of emergency room visits for constipation which required fleets enemas and mag citrate.) - Musculoskeletal Musculoskeletal: REPORTS: Back Pain (Chronic) Exam - Vitals Vital Signs: Vital Signs Temperature 97.5 F Temperature Source Oral Pulse Rate [Apical] 64 Pulse Rate [Pulse Oximeter] 67 Pulse Rate [Pulse Oximeter 60 Bilateral Radial] Pulse Rate 60 Respiratory Rate 16 Blood Pressure [Left Arm] 125/61 Blood Pressure 114/62 Pulse Ox 94 Oxygen Delivery Method Room Air Height 4 ft 10 in Weight 76 lb 9.6 oz - General General Appearance: No Acute Distress, Cooperative, Thin - Head Head Exam: Normal Inspection, Normocephalic, Atraumatic - Eye Eye Exam: POSITIVE: No Scleral Icterus - ENT ENT Exam: POSITIVE: Mucous Membranes Moist - Neck Neck Exam: No Tenderness, No Lymphadenopathy, No Thyromegaly - Respiratory Respiratory Exam: POSITIVE: Clear to Auscultation - Bilaterally, Breathing Non Labored, Normal to Percussion and Palpation - Cardiovascular Cardiovascular Exam: POSITIVE: RRR, No Murmur, No Clicks, No Gallops, No Rubs, No JVD - GI/Abdominal GI/Abdominal Exam: POSITIVE: Normal Bowel Sounds, Non Tender, Non Distended, Soft - Rectal Rectal Exam: POSITIVE: Deferred - External Exam: POSITIVE: Deferred Exam: POSITIVE: Deferred - Extremities Extremities Exam: POSITIVE: No Clubbing Present, No Edema Present, No Cyanosis Present - Back Back Exam: POSITIVE: No CVA Tenderness - Neurological Neurological Exam: POSITIVE: Alert, Oriented x 3, No Facial Droop, Speech Intact / Clear, Moves All Extremities Equally - Psychiatric Psychiatric Exam: POSITIVE: Normal Affect, Normal Mood - Integumentary Integumentary Exam: POSITIVE: Normal Color, Warm, Dry, Intact Results - Labs CBC and BMP: 07/24/17 11:56 07/24/17 11:56 Additional Lab Results: Laboratory Results 07/24/17 07/24/17 Range/Units 11:56 11:56 WBC 5.12 (4.8-10.8) 10^3/uL RBC 4.03 L (4.20-5.40) 10^6/uL Hgb 11.5 L (12.0-16.0) g/dL Hct 34.7 L (37.0-47.0) % MCV 86.1 (81-99) FL MCH 28.5 (27-31) PG MCHC 33.1 (33-37) g/dL RDW Std Deviation 40.3 (39-50) fL RDW Coeff of Kira 13.0 (11.5-14.5) % Plt Count 129 L (140-350) 10*3/uL MPV 10.8 (7.4-12.2) FL Immature Gran % (Auto) 0.2 (0-5) % Neut % (Auto) 60.9 (50-80) % Lymph % (Auto) 29.3 (10-50) % Sampson % (Auto) 5.5 (5-15) % Eos % (Auto) 3.7 (0-8) % Baso % (Auto) 0.4 (0-1) % Immature Gran # (Auto) 0.01 10*3/UL Neut # (Auto) 3.12 10*3/UL Lymph # (Auto) 1.50 10*3/uL Sampson # (Auto) 0.28 L (0.3-0.8) 10*3/UL Eos # (Auto) 0.19 10*3/UL Baso # (Auto) 0.02 10*3/UL WBC Morphology Comment Normal morphology (NORM) Plt Morphology Comment Normal morphology (NORM) RBC Morph Comment Normal morphology (NORM) Sodium 138 (135-145) meq/L Potassium 4.0 (3.8-5.2) meq/L Chloride 101 (98-112) meq/L Carbon Dioxide 25 (23-33) meq/L Anion Gap 12 (5-20) BUN 14 (7-22) mg/dL Creatinine 0.6 (0.50-1.20) mg/dL BUN/Creatinine Ratio 23.33 H (6-20) Glucose 105 (78-110) mg/dL Calculated Osmolality 286.0 (267-292) mOsm/kg Calcium 9.4 (8.7-10.7) mg/dL Total Bilirubin 0.4 (0.3-1.2) mg/dL AST 25 (8-39) IU/L ALT 25 (9-52) IU/L Alkaline Phosphatase 61 (38-126) IU/L Total Protein 7.2 (6.1-8.0) g/dL Albumin 4.3 (3.5-4.8) g/dL Globulin 2.8 (2.50-4.10) g/dL Albumin/Globulin Ratio 1.50 (1.3-2.0) mg/g - EKG Data -: EKG Interpreted by Me Rate: Bradycardia EKG Shows Normal: Sinus Rhythm - Imaging Status: Image Reviewed by Me (I looked at the head CT scan, and it is negative for any acute bleed) Assessment and Plan - Patient Problems (1) Transient ischemic attack Current Visit: Yes Status: Acute Code(s): G45.9 - Transient cerebral ischemic attack, unspecified Qualifiers: Transient cerebral ischemia type: unspecified Qualified Code(s): G45.9 - Transient cerebral ischemic attack, unspecified (2) Chronic pain syndrome Current Visit: Yes Status: Chronic Code(s): G89.4 - Chronic pain syndrome (3) Failure to thrive syndrome, adult Current Visit: Yes Status: Chronic (4) Hypertension Current Visit: Yes Status: Acute Code(s): I10 - Essential (primary) hypertension Qualifiers: Hypertension type: essential hypertension Qualified Code(s): I10 - Essential (primary) hypertension (5) Anxiety Current Visit: Yes Status: Chronic Code(s): F41.9 - Anxiety disorder, unspecified (6) Constipation Current Visit: Yes Status: Chronic Code(s): K59.00 - Constipation, unspecified Qualifiers: Constipation type: drug induced constipation Qualified Code(s): K59.03 - Drug induced constipation - Assessment / Plan Additional Assessment/Plan Details: Given that this patient has been on aspirin, I think she would be a good candidate for Plavix and there was no evidence of bleed so I will start that today. We can consider dual therapy with Plavix and aspirin but given the patient's overall poor health, failure to thrive, and may even be reasonable to just consider Plavix as the hospital stay goes on and as an outpatient as well. Thus far, no radiographic evidence of stroke. Get echocardiogram to make sure there is no cardioembolic source. Continue telemetry monitoring. Check lipid panel. PT and OT. My hope is that if we can complete this workup and there are no further symptoms we could consider discharge tomorrow on Plavix. Blood pressures are well controlled currently and I'm not sure the patient would benefit from continuing all of her antihypertensives, but we can reevaluate that process tomorrow. Continue medications for constipation such as MiraLAX. Pain medications for chronic pain syndrome, Percocet as used at home. The patient is DO NOT RESUSCITATE. I highly agree with that as it would be an absolutely futile procedure in this patient. I discussed the above plan with the patient and she agreed.
[2017-07-25] MEDS: oxyCODONE/APAP 7.5/325 Tab 1 TAB TAB PO SCH ×3 (01:16→13:05)
[2017-07-25 04:57] VITALS: RESP 16
--- NOTE | 2017-07-25 05:17 | PDOC ---
Neuro Symptoms / Deficit HPI - General Chief Complaint: Abdomen Pain Stated Complaint: INCOHERENT Date Seen by Provider: 07/24/17 Time Seen by Provider: 10:15 Source: POSITIVE: Patient, Spouse Exam Limitations: POSITIVE: No limitations Nurse's Notes Reviewed & Considered: Yes EMS Report Reviewed & Considered: Verbal - History of Present Illness Initial Comments: The patient is a 77-year-old female. She is brought to the emergency room by ambulance. Approximately 30 minutes [employer] she was having breakfast with her . She had an abrupt onset of "slurred speech". She states that she was "not able to form my words ". Her , who observed the episode, states that she also had "weakness on the right side of her face". This episode lasted approximately 10 minutes. Upon presentation to the emergency room she is back to normal, except she does complain of a mild headache. She also complains of generalized weakness. Patient has a history of rheumatoid arthritis with generalized pain, for which he takes oxycodone/APAP. She also takes mirtazapine, levothyroxine and lisinopril, amlodipine, clonazepam, Nexium , one baby aspirin daily carvidilol. Body Location Affected: REPORTS: Face, Other (Right facial weakness and speech aphasia as above) Timing: REPORTS: Abrupt Duration: 1/2 hour Severity: Moderate Quality: REPORTS: Other (Mild circumferential headache) Context: DENIES: Insect Bite, Tick Bite, Falling Injury, Head Injury, Other Character of Deficit(s): REPORTS: Facial (Right side of face), Impaired Speech Associated Symptoms: REPORTS: Headache (Circumferential) Usual Ability to Walk/Stand: REPORTS: Walker Use Usual Cognition: REPORTS: Alert & Oriented x3 Similar Symptoms Previously: No Recently seen/treated/hospitalized: No Any Prior Injuries Related to Current Complaint?: No - Patient Home Medications Home Medications: Home Medications Esomeprazole Magnesium [Nexium] 2 cap PO DAILY 05/28/16 Aspirin EC 325 mg PO DAILY #30 tab 05/30/16 Denosumab [Prolia] 1 ml SUBCUT every 6 months #0 ml 06/13/16 Ondansetron Odt [Zofran ODT] 4 mg SL Q6H PRN #15 tab 10/21/16 Polyethylene Glycol 3350 [Miralax] 17 gm PO DAILY #30 powd.pack 12/11/16 Clonazepam 1 tab PO TID PRN #90 tab 02/28/17 Carvedilol [Coreg] 1 tab ORAL BID #60 tab 04/02/17 Lisinopril 1 tab ORAL BID #60 tab 04/13/17 Amlodipine Besylate 1 tab PO DAILY #30 tab 04/24/17 Oxycodone HCl/Acetaminophen [Percocet 5-325 Mg Tablet] 1 ea PO QID PRN #120 tab 04/24/17 Levothyroxine Sodium 1 tab ORAL QD #30 tab 05/29/17 Clonazepam 1 tab PO TID PRN #90 tab 06/25/17 Linaclotide [Linzess] Sample #24 06/25/17 Oxycodone HCl/Acetaminophen [Oxycodon-Acetaminophen 7.5-325] 1 tab PO Q6H #120 tab 06/25/17 promethazine 6.25 mg/5 mL syrup 12.5 mg PO Q4-6H PRN #240 ml 07/10/17 - Patient Allergies Allergies/Adverse Reactions: Allergies 3 Allergy/AdvReac Type Severity Reaction Status Date / Time mirtazapine [From Remeron] AdvReac Intermediate slept for Verified 07/17/17 17: 46 days and speech deficit Past Medical History - heen HEENT History: Hard of Hearing Additional HEENT History: WEARS GLASSES Cardiovascular History: Hypertension Respiratory History: Denies History Gastrointestinal History: GERD, Gallbladder Disease Additional Gastrointestinal History: IBS (?) Genitourinary History: Denies History Endocrine History: Hypothyroidism Musculoskeletal History: Osteoporosis Prosthesis or Implant: No Additional Musculoskeletal History: COMPRESSION FXS BACK Neurological History: Denies History Blood Disorders: Denies History Psychiatric History: Anxiety Disorders History of Sexually Transmitted Diseases: No Female Reproductive History: Denies History LMP: unknown Obstetrical History: Denies History Cancer History: Denies History In Past Year Been Physically Harmed or Verbally Threatened: No History of MDRO: No History of Other Communicable Diseases: No Tobacco Use: Never Smoker Alcohol Use: None In the Past 12 Months, Have Used or Abuse Any Substance: None Previous Surgical History: No Type / Date of Surgery: CHOLECYSTECTOMY Anesthesia Reactions: No Malignant Hyperthermia: No Significant Family History: No pertinent family hx Past Medical History Reviewed: Reviewed - No Changes ROS - Limitations ROS Limitations: No Limitations Constitution: REPORTS: Denies Symptoms Cardiovascular: REPORTS: Denies Cardiac Symptoms Respiratory: REPORTS: Denies Resp Symptoms Neurological: REPORTS: Headache, Facial Asymmetry, Other (Difficulty speaking) Gastrointestinal: REPORTS: Denies GI Symptoms Endocrine: REPORTS: Denies Symptoms Musculoskeletal: REPORTS: Denies MS Symptoms Genitourinary: REPORTS: Denies Symptoms Eyes: REPORTS: Denies Symptoms ENT: REPORTS: Denies Symptoms Skin: REPORTS: Denies Skin Symptoms Lympathic: REPORTS: Denies Lympathic Symptoms Immunologic: POSITIVE: Denies Symptoms Psychiatric: POSITIVE: Denies Psych Symptoms Neuro Symptoms / Deficit Exam - General Appearance General Appearance: POSITIVE: No Acute Distress, Alert - HEENT HEENT: POSITIVE: Head Inspection Nml, Eyes Inspection Nml, Ears Inspection Nml, Nose Inspection Nml, Oral/Dental Inspect. Nml, Pharynx Inspect. Nml, PERRL, EOMI - Pupil Size Pupil Size: 3 mm: Bilateral (PERRLA) - Neuro / Psych Higher Functions: NEGATIVE: Oriented to Person, Oriented to Place, Oriented to Time, Normal Speech, Normal Cognition, Appropriate Mood, Appropriate Affect Cranial Nerves: POSITIVE: Normal As Tested, No Evidence of Acute CVA Cerebellar: POSITIVE: Normal As Tested Peripheral Exam: POSITIVE: Sensation Normal, Motor Normal, Reflexes Normal - Neck Neck: POSITIVE: Supple, Non-Tender, No Carotid Bruit - Respiratory Respiratory: POSITIVE: No Respiratory Distress, Breath Sounds Normal - Cardiovascular Cardiovascular: POSITIVE: Regular Rate & Rhythm, Heart Sounds Normal Peripheral Pulses: Radial (R): 2+, Radial (L): 2+ - Abdomen Abdomen: Soft: (All Quadrants), Normal Bowel Sounds: (All Quadrants), Denies Tenderness: (All Quadrants), No Splenomegaly: (All Quadrants), No Hepatomegaly: (All Quadrants), No Guarding: (All Quadrants), No Rebound: (All Quadrants), No Palpable Pulse: (All Quadrants), No Palpabale Mass: (All Quadrants), No Distention: (All Quadrants), No Rigidity: (All Quadrants) - Skin Skin: POSITIVE: Intact, Normal For Race, Warm, Dry, No Rash - Extremities Extremity: Non-Tender: (All Extremities), Normal ROM: (All Extremities), Normal Inspection: (All Extremities) Neuro Symptom/Deficit Progress - Results Reviewed by me Xrays/CTs/US Reviewed by me: Yes Discussed with Radiologist: No Radiology Findings: CT scan head without contrast read as normal by radiologist. CBC and BMP: 07/24/17 11:56 07/24/17 11:56 EKG Interpreted/Reviewed By Me:: Yes (normal) EKG Interpretation:: POSITIVE: Normal Sinus Rhythm, Normal Rate, Normal Intervals, Normal [place], Normal QRS, Normal ST/T - Patient's Progress Pain Medication Addressed: POSITIVE: Not Applicable School/Work Release Addressed: POSITIVE: Not Applicable Re-Examine Time:: 13:25 Re-Examine Comment: Patient remains asymptomatic throughout her stay in the emergency room Status: POSITIVE: Unchanged Antibiotics Given: No - Consult Consult (If Yes, Name of Consulting MD & Time Called): Yes (Dr. Weiner, hospitalist, [id number]) Consulting MD will see pt:: POSITIVE: [facility] Admit Counseled: POSITIVE: Patient, Family (), RE: Lab Results, RE: Radiology Results, RE: DX, RE: Need for F/U Patient Care Time - Estimated PCT Patient Care Time (In Minutes): 60 Vital Signs - Recent Vital Signs Vital Signs: Vital Signs (Last 8 hours) Temp Pulse Resp BP Pulse Ox 07/25/17 04:56 98.3 F 56 L 16 114/53 97 07/25/17 00:13 98.7 F 60 20 104/54 95 - VS Reviewed Vital Signs Reviewed: Yes Discharge Clinical Impression: Transient ischemic attack Qualifiers: Transient cerebral ischemia type: unspecified Qualified Code(s): G45.9 - Transient cerebral ischemic attack, unspecified Discharge Disposition: Admit to Inpatient Condition: Good Date Decision to Admit to Inpatient: 07/24/17 Time Decision to Admit to Inpatient: 13:25
[2017-07-25] MEDS ORDERED: LEVOTHYROXINE 25 MCG TABLET PO SCH (05:30)
[2017-07-25 05:46] LABS: CHOL/HDL RATIO 5.96 RATIO (0-4.0)
[2017-07-25 07:25] VITALS: O2SAT 96
[2017-07-25] MEDS ORDERED: ENOXAPARIN SODIUM 40 MG/0.4 ML SYRINGE SUBCUT SCH (09:00)
[2017-07-25] MEDS ORDERED: Esomeprazole DR 20mg Capsule PO SCH (09:00)
[2017-07-25] MEDS ORDERED: ASPIRIN 325 MG EC TABLET PO SCH (09:00)
[2017-07-25] MEDS ORDERED: POLYETHYLENE GLYCOL 3350 17 GM POWDER PO SCH (09:00)
[2017-07-25] MEDS ORDERED: CLOPIDOGREL 75 MG TABLET PO SCH (09:00)
[2017-07-25] MEDS ORDERED: ClonazePAM Tab 1 MG TABLET PO PRN (09:15)
[2017-07-25 11:39] VITALS: BP 129/64; TEMP 98.2
--- NOTE | 2017-07-25 11:59 | PDOC(PROG) ---
Date and Time of Service: 07/25/2017 11:58 AM Interval History: Subjective Patient is denying complaint. She doesn't have weakness, no numbness no chest pain and no shortness of breath. Her speech is fine she said. She is not sure why she is here in the hospital. But when I talked to her she did say that her called the medics because she had problem with her speech but that did not last long, she siad she didn't make sense but that's improved. There was no weakness or numbness. Doesn't have any symptoms now. She did walk to the bathroom, to nursing staff did okay Objective : Data - Labs CBC and BMP: 07/24/17 11:56 07/24/17 11:56 Objective : Exam - General General Appearance: No Acute Distress, Cooperative, Thin - Head Head Exam: Normal Inspection - Eye Eye Exam: Normal Appearance - ENT ENT Exam: Normal Exam - Neck Neck Exam: Normal Inspection - Respiratory Respiratory Exam: Clear to Auscultation - Bilaterally - Cardiovascular Cardiovascular Exam: RRR - GI/Abdominal GI/Abdominal Exam: Normal Bowel Sounds, Non Tender - Rectal Rectal Exam: Deferred - External Exam: Deferred - Extremities Extremities Exam: Normal Inspection - Back Back Exam: Normal Inspection - Neurological Neurological Exam: Alert, CN II-XII Intact, No Facial Droop, Speech Intact / Clear, Moves All Extremities Equally - Psychiatric Psychiatric Exam: Normal Affect Assessment and Plan - Patient Problems (1) Transient ischemic attack Status: Acute Comment: This is resolved. There is no evidence of stroke on the MRI. I did speak with physical therapy she is at her baseline. I think she can be discharged home we switched her from aspirin to Plavix. Follow-up with her primary as an outpatient. Code(s): G45.9 - Transient cerebral ischemic attack, unspecified Qualifiers: Transient cerebral ischemia type: unspecified Qualified Code(s): G45.9 - Transient cerebral ischemic attack, unspecified
--- NOTE | 2017-07-25 12:25 | OTI REPORT ---
Thank you for the referral of Halley Joyner. She was seen on 07/24/17 for an occupational therapy inpatient evaluation secondary to a TIA. SUBJECTIVE: The patient is a 77-year-old female who is being seen today secondary to having a TIA. She reports that she has no idea what was going on with her but she was eating breakfast and started slurring her words. Her called the ambulance. The patient says that her spouse assists her with most things around the home but he isn't doing well at this point in time with his health. When asked if she had had those symptoms anytime previously, she said that a couple of years ago she had these symptoms and fell off the commode. The patient does live at the [facility] apartments. She reports she gets no assistance from anyone other than her sisters. The patient's sisters do come and help her if needed. She states that her sisters sometimes do the laundry but sometimes she does it as well. She states her does the cooking; however, he is struggling. She states they do not have any assistance with cleaning and that this is getting more and more difficult to do on her own. The patient's does the grocery shopping as well as the driving. She does have a bathroom set up that is handicap accessible. She has a walk in shower as well as a seat in the tub and a hand held shower hose. The patient states that her sister comes over and helps her shower once in a while when she is not feeling as well as she needs to in order to shower independently. The patient sleeps in a standard bed and she has a front wheeled walker that she has been using. The patient reports this morning she was dizzy. The patient states her [id number] fills her medication box and she takes the medications daily. The patient's foods have been an issue and she is very low weight at this point in time. The patient reports that she coughs a lot and has to take her pills with applesauce and crush them. The patient does have acid reflux and any bread or anything that is sweet or spicy gives her a lot of difficulty. The patient has had her throat stretched in the past. The patient has poor dentition. PAST MEDICAL HISTORY: Past medical history can be found in the patient's medical record. OBJECTIVE FINDINGS: Swallowing abilities: The patient does have poor dentition. She has 8 teeth on the bottom and she does not have any teeth on the top. When speaking to her [id number] later in the day, she reported that her dentures are not fitting her very well and when her gums get sores on them, that is when she quits eating. The patient has requested to be on a pureed diet which would include only textured food including a hard boiled egg and sliced cheese. The pureed diet was discussed with the patient and this is what she would prefer to do to get calories. She wanted no sweet food or liquids. Transfers: The patient requires min assist to keep her balance. Without the walker she was tipsy and needed assistance to stand upright. Activities of daily living: The patient requires mod assist to dress lower extremities secondary to the weakness and fatigue that she has been experiencing. Range of motion: Active range of motion in bilateral upper extremities is approximately 120 degrees. Pain: The patient rates her pain in her shoulders as an 8/10 on the verbal analog scale (0=no pain, 10=worst pain). She states her arthritis is her main limiting factor with participating with activities throughout the day. Strength: Strength for shoulder flexion was 3+/5, extension was 4/5, abduction was 3+/5, adduction was 4/5, biceps flexion/extension was 4/5, and wrist flexion /extension was 3+/5. ASSESSMENT: Problem List: Decreased ability to perform functional transfers and ADLs Decreased upper extremity strength Decreased strength Decreased balance Short-Term Goals: To be met by discharge from inpatient: Patient will be able to dress self independently including set up. Patient will be able to complete a toilet transfer along with toilet hygiene independently. Patient will improve upper extremity strength to 4+/5 throughout in her upper extremities to improve strength for ADLs and functional transfers. Patient will be able to complete shower task with contact guard assist for the transfer and stand by assist for the shower. Patient will be able to demonstrate eating selected diet without difficulty so that she can improve her weight and improve her nutritional intake. Patient and her will be able to prepare meals for the patient and the patient will be independent with feeding and eating abilities. Long-Term Goals: To be met following discharge from inpatient: Patient will be able to return home, demonstrating safety and independence with all functional transfers and simple ADLs. TREATMENT PLAN: Patient will be seen B.I.D during the week and one time per day over the weekend as an inpatient to address the above goals and objectives. INITIAL TREATMENT: Treatment today consisted of the initial evaluation followed by the patient performing a toilet transfer with min assist. The patient then participated in a swallow screen with water. The patient does not aspirate on thin liquids as observed today. The patient has approximately 80% laryngeal elevation. Her poor dentition limits her abilities to masticate boluses. A pureed diet is recommended as this is the safest and the patient requested this type of food. KEVIN
--- NOTE | 2017-07-25 12:39 | OT.PROG ---
Progress Note Progress Note: S: pt states that she just wants to go home and sleep because she can't here in the hospital. O: pt was seen in her room in the a.m. and was in supine position in chair. She completed transition from supine in chair to sitting on edge of chair Ind. She completed ther ex with BUE's x15 to increase strength with RTb. She also completed x10 sit to stands Ind and completed standing marches x15 with BLE's Ind. She remained standing for up to 5 min to work on standing endurance. Pt was left upright in chair and completed all chair mobility Ind. A: pt completed activities great, even completing sit to stands Ind. She may continue to benefit from therapy for strengthening. P: continue per plan of care
--- NOTE | 2017-07-25 15:54 | DCSUMMARY ---
Hospitalization Summary Admit Date: 07/24/17 Discharge Date: 07/25/17 Hospital Course: Discharge diagnoses 1. Possible TIA 2. Failure to thrive 3. Hypothyroidism 4. History of Polymyalgia rheumatica 5. History of lumbar compression fracture which cause chronic pain syndrome on pain medications 6. Hypertension Hospital course This is a 77 years old female with medical history significant for history of failure to thrive, chronic pain, hypertension who was brought to the hospital because of right facial droop and right arm weakness that lasted for about 10 minutes and resolved on its own. She was admitted to the hospital by Dr. Weiner please see his note. Patient aspirin was switched to Plavix. She had a an MR I and an MRA of the brain there was no evidence of stroke. The next day she denied complaint initially she did not recall why she ended up here in the hospital but after direct questioning she remembered that her called the medics because her speech did not make sense to him. She denied though weakness or numbness. The speech issue resolved. She did not have any symptoms she did walk with physical therapy and they thought that she is at her baseline. We thought that she could be discharged home switched from aspirin to Plavix and follow-up with her primary. I did tell her to continue checking her blood pressure and resume her blood pressure medications. She need follow-up with her primary. Laboratory Results 07/24/17 07/24/17 07/25/17 Range/Units 11:56 11:56 04:35 WBC 5.12 (4.8-10.8) 10^3/uL RBC 4.03 L (4.20-5.40) 10^6/uL Hgb 11.5 L (12.0-16.0) g/dL Hct 34.7 L (37.0-47.0) % MCV 86.1 (81-99) FL MCH 28.5 (27-31) PG MCHC 33.1 (33-37) g/dL RDW Std Deviation 40.3 (39-50) fL RDW Coeff of Kira 13.0 (11.5-14.5) % Plt Count 129 L (140-350) 10*3/uL MPV 10.8 (7.4-12.2) FL Immature Gran % (Auto) 0.2 (0-5) % Neut % (Auto) 60.9 (50-80) % Lymph % (Auto) 29.3 (10-50) % Love % (Auto) 5.5 (5-15) % Eos % (Auto) 3.7 (0-8) % Baso % (Auto) 0.4 (0-1) % Immature Gran # (Auto) 0.01 10*3/UL Neut # (Auto) 3.12 10*3/UL Lymph # (Auto) 1.50 10*3/uL Love # (Auto) 0.28 L (0.3-0.8) 10*3/UL Eos # (Auto) 0.19 10*3/UL Baso # (Auto) 0.02 10*3/UL WBC Morphology Comment Normal morphology (NORM) Plt Morphology Comment Normal morphology (NORM) RBC Morph Comment Normal morphology (NORM) Sodium 138 (135-145) meq/L Potassium 4.0 (3.8-5.2) meq/L Chloride 101 (98-112) meq/L Carbon Dioxide 25 (23-33) meq/L Anion Gap 12 (5-20) BUN 14 (7-22) mg/dL Creatinine 0.6 (0.50-1.20) mg/dL BUN/Creatinine Ratio 23.33 H (6-20) Glucose 105 (78-110) mg/dL Calculated Osmolality 286.0 (267-292) mOsm/kg Calcium 9.4 (8.7-10.7) mg/dL Total Bilirubin 0.4 (0.3-1.2) mg/dL AST 25 (8-39) IU/L ALT 25 (9-52) IU/L Alkaline Phosphatase 61 (38-126) IU/L Total Protein 7.2 (6.1-8.0) g/dL Albumin 4.3 (3.5-4.8) g/dL Globulin 2.8 (2.50-4.10) g/dL Albumin/Globulin Ratio 1.50 (1.3-2.0) mg/g Triglycerides 97 (44-200) mg/dL Cholesterol 197 (120-200) mg/dL LDL Cholesterol, Calc 144.600 mg/dL VLDL Cholesterol 19 (0-40) mg/dL HDL Cholesterol 33 L (40-150) mg/dL Cholesterol/HDL Ratio 5.96 H (0-4.0) RATIO TSH Free T4 (0.93-1.71) ng/dL 07/25/17 Range/Units 04:35 WBC (4.8-10.8) 10^3/uL RBC (4.20-5.40) 10^6/uL Hgb (12.0-16.0) g/dL Hct (37.0-47.0) % MCV (81-99) FL MCH (27-31) PG MCHC (33-37) g/dL RDW Std Deviation (39-50) fL RDW Coeff of Kira (11.5-14.5) % Plt Count (140-350) 10*3/uL MPV (7.4-12.2) FL Immature Gran % (Auto) (0-5) % Neut % (Auto) (50-80) % Lymph % (Auto) (10-50) % Love % (Auto) (5-15) % Eos % (Auto) (0-8) % Baso % (Auto) (0-1) % Immature Gran # (Auto) 10*3/UL Neut # (Auto) 10*3/UL Lymph # (Auto) 10*3/uL Love # (Auto) (0.3-0.8) 10*3/UL Eos # (Auto) 10*3/UL Baso # (Auto) 10*3/UL WBC Morphology Comment (NORM) Plt Morphology Comment (NORM) RBC Morph Comment (NORM) Sodium (135-145) meq/L Potassium (3.8-5.2) meq/L Chloride (98-112) meq/L Carbon Dioxide (23-33) meq/L Anion Gap (5-20) BUN (7-22) mg/dL Creatinine (0.50-1.20) mg/dL BUN/Creatinine Ratio (6-20) Glucose (78-110) mg/dL Calculated Osmolality (267-292) mOsm/kg Calcium (8.7-10.7) mg/dL Total Bilirubin (0.3-1.2) mg/dL AST (8-39) IU/L ALT (9-52) IU/L Alkaline Phosphatase (38-126) IU/L Total Protein (6.1-8.0) g/dL Albumin (3.5-4.8) g/dL Globulin (2.50-4.10) g/dL Albumin/Globulin Ratio (1.3-2.0) mg/g Triglycerides (44-200) mg/dL Cholesterol (120-200) mg/dL LDL Cholesterol, Calc mg/dL VLDL Cholesterol (0-40) mg/dL HDL Cholesterol (40-150) mg/dL Cholesterol/HDL Ratio (0-4.0) RATIO TSH Pending Free T4 1.02 (0.93-1.71) ng/dL Discharge instruction Diet regular Activity as started Medications Home Medications Medication Instructions Recorded Confirmed Type Esomeprazole Magnesium [Nexium] 2 cap PO DAILY 05/28/16 07/24/17 History Denosumab [Prolia] 1 ml SUBCUT every 6 months #0 ml 06/13/16 07/24/17 History Ondansetron Odt [Zofran ODT] 4 mg SL Q6H PRN #15 tab 10/21/16 07/24/17 Rx Polyethylene Glycol 3350 [Miralax] 17 gm PO DAILY #30 powd.pack 12/11/16 Rx Clonazepam 1 tab PO TID PRN #90 tab 02/28/17 06/20/17 Clinic Carvedilol [Coreg] 1 tab ORAL BID #60 tab 04/02/17 07/24/17 Rx Lisinopril 1 tab ORAL BID #60 tab 04/13/17 07/24/17 Rx Amlodipine Besylate 1 tab PO DAILY #30 tab 04/24/17 07/24/17 Rx Oxycodone HCl/Acetaminophen 1 ea PO QID PRN #120 tab 04/24/17 06/20/17 Clinic [Percocet 5-325 Mg Tablet] Levothyroxine Sodium 1 tab ORAL QD #30 tab 05/29/17 07/24/17 Rx Clonazepam 1 tab PO TID PRN #90 tab 06/25/17 07/24/17 Clinic Linaclotide [Linzess] Sample #24 06/25/17 Clinic Oxycodone HCl/Acetaminophen 1 tab PO Q6H #120 tab 06/25/17 07/24/17 Clinic [Oxycodon-Acetaminophen 7.5-325] promethazine 6.25 mg/5 mL syrup 12.5 mg PO Q4-6H PRN #240 ml 07/10/17 07/24/17 Rx Clopidogrel [Plavix] 75 mg PO DAILY #30 tab 07/25/17 Rx Follow-up with her PCP in 1-2 weeks Condition at discharge was stable for discharge Exam - Vitals Vital Signs: Vital Signs Temperature 98.2 F Temperature Source Temporal Artery Scan Pulse Rate [Apical] 64 Pulse Rate [Pulse Oximeter] 64 Pulse Rate [Pulse Oximeter 60 Bilateral Radial] Pulse Rate 60 Respiratory Rate 16 Blood Pressure [Left Arm] 129/64 Blood Pressure 114/62 Pulse Ox 96 Oxygen Delivery Method Room Air Height 4 ft 10 in Weight 76 lb 11.2 oz Patient Problems - Patient Problem List (1) Transient ischemic attack Status: Acute Code(s): G45.9 - Transient cerebral ischemic attack, unspecified Qualifiers: Transient cerebral ischemia type: unspecified Qualified Code(s): G45.9 - Transient cerebral ischemic attack, unspecified Category: Medical
--- NOTE | 2017-07-26 12:08 | PTI REPORT ---
Thank you for the referral of Halley Joyner. She was seen on 07/24/17 for an inpatient evaluation secondary to a TIA and weakness. SUBJECTIVE: The patient is a 77-year-old female who states that when she was eating breakfast this morning, she was trying to speak with her but was slurring her words. He became concerned and called 911 and she was taken by ambulance to the hospital. The patient states that she had a similar incident happen approximately 1-2 years ago. The patient states that she's doing better but she does complain of feeling nauseous. The patient states that she lives in the [facility] with her and prior to this incident she was walking with her wheeled walker and was also receiving some assistance from her sisters in town with help for ADLs as needed. The patient states that she feels more weak on her left side vs. her right and this has been a chronic problem for her. The patient states that she suffers from neck pain as she has a history of osteoporosis and osteoarthritis. The patient denies any falls in the last few months. PAST MEDICAL HISTORY: Past medical history can be found in the patient's medical record. OBJECTIVE FINDINGS: General observations: The patient is alert and oriented to setting upon PT arrival. 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 Transfers: The patient transferred to chair, sitting upright. The patient required contact guard assist x1 for safety with her transfer. The patient states she has a difficult time getting comfortable in a seated position secondary to her pain. Strength: The patient's bilateral lower extremity strength was tested in a seated position. Her right lower extremity strength is 4/5 and her left lower extremity strength is 3/5. Ambulation: The patient was issued a walker with wheels as she states her one at home is not in good condition and she is most safe when utilizing a walker with wheels due to her weakness and poor balance. ASSESSMENT: The patient has fair rehab potential secondary to her age and past medical history. Problem List: Decreased endurance/activity tolerance Weakness Short-Term Goals: To be met by discharge from inpatient: Patient will be able to transfer from bed to stand independently and safely. Patient will be able to ambulate at least 100 feet with front wheeled walker and stand by assist x1 and do so safely. Long-Term Goals: To be met following discharge from inpatient: Patient will be an appropriate candidate for outpatient or home health therapies in order to improve her overall strength and mobility. TREATMENT PLAN: Patient will be seen B.I.D during the week and one time per day over the weekend as an inpatient for working on independence and safety with transfers, improving activity tolerance and endurance, and increasing ambulation distance and safety with front wheeled walker. INITIAL TREATMENT: Treatment today consisted of the initial evaluation activities only. KEVIN
--- NOTE | 2017-07-27 14:20 | PT AM DAY ---
Diagnosis : TIA AM - Physical Therapy S: The patient states she is doing okay today. She just feels a little lightheaded but overall she feels like she is getting better. O: Treatment today consisted of therapeutic exercises in the patient's room including ambulating to the bathroom where the patient was able to toilet and hygiene independently. The patient then performed bilateral lower extremity strengthening including long arc quads, seated marches, pillow squeezes, ankle pumps, sit to stands, straight leg raises, hip abduction/adduction, quad sets, and heel slides. The patient was left sitting in chair with call button within reach. Nursing was notified. A: Overall the patient did very well with all activities today. It is noted that she does have small knee flexion contractures bilaterally. She does have some weakness with ambulating but otherwise is doing well. P: Continue seeing patient BID during the week and one time per day over the weekend for transfers, ambulation, and range of motion/strengthening exercises. KEVIN
== END 2017-07-25 14:12 | disposition home or self-care (01) ==
LOC: ER 10:48 → MED/SURG 10:48
PROVIDERS: ADMIT Family Medicine; ATTEND Family Medicine

== ENCOUNTER 2018-12-08 19:42 | Inpatient (IN) ==
--- NOTE | 2018-12-08 20:20 | EKG ---
[address] [address] Measurements Intervals [place] Rate: 85 P: 67 SD: 183 QRS: 63 QRSD: 81 T: 39 QT: 343 QTc: 385 Interpretive Statements SINUS RHYTHM Compared to ECG 07/24/2017 12:10:55 Sinus bradycardia no longer present No acute injury pattern Electronically Signed On 12-09-18 08:08:03 [facility] by Arun Velez MD [email or web address]
[2018-12-08 20:32] LABS: BASOPHILS # (AUTO) 0.01 10*3/UL; BASOPHILS % (AUTO) 0.2 % (0-1); EOSINOPHILS # (AUTO) 0.04 10*3/UL; EOSINOPHILS % (AUTO) 0.7 % (0-8); Hematocrit [HCT] 37.1 % (37.0-47.0); MEAN CORPUSCULAR HGB CONC 32.3 g/dL (33-37); MEAN CORPUSCULAR VOLUME 86.7 FL (81-99); MEAN PLATELET VOLUME 9.6 FL (7.4-12.2); MONOCYTES # (AUTO) 0.32 10*3/UL (0.3-0.8); MONOCYTES % (AUTO) 5.8 % (5-15); NEUTROPHILS % (AUTO) 63.9 % (50-80); RED BLOOD COUNT 4.28 10^6/uL (4.20-5.40)
[2018-12-08 20:40] LABS: PLATELET MORPHOLOGY COMMENT NORMAL MORPHOLOGY (NORM); RBC MORPHOLOGY COMMENT NORMAL MORPHOLOGY (NORM); WBC MORPHOLOGY COMMENT NORMAL MORPHOLOGY (NORM)
[2018-12-08 20:41] LABS: BLOOD UREA NITROGEN 10 mg/dL (7-22); BUN/CREATININE RATIO 16.66 (6-20); LIPASE 68 IU/L (23-300); SERUM ALBUMIN 4.5 g/dL (3.5-4.8)
--- NOTE | 2018-12-08 21:11 | DI ---
AP CHEST X-RAY, 12/08/2018 8:17 PM : Clinical History: Chest pain. Previous Exam: None at this facility. Soft Tissues: No acute soft tissue abnormality. The patient is rotated toward her right side. Bones: Normal. Heart: Normal heart. Lungs: No infiltrates. Effusion(s): None. Mediastinum: Normal mediastinum. Nodules: No pulmonary nodules. Reading: Normal chest x-ray.
--- NOTE | 2018-12-08 21:26 | PDOC ---
HPI - History of Present Illness History of Present Illness: This very nice 78-year-old the female with multiple medical issues including chronic pain, hypertension, polymyalgia rheumatica on prednisone chronically and multiple lumbar compression fractures comes in with her complaining of upper abdominal pain and generalized aches and arthritic pain her and her both called the ambulance because of the multiple pain complaints and also unable take care of themselves Past Medical History Medical History: 1. Failure to thrive with weight loss, currently 76 pounds today. 2. Protein calorie malnutrition. 3. Vitamin B12 deficiency. 4. Hypothyroidism. 5. Polymyalgia rheumatica, on prednisone 10 mg daily. 6. Lumbar compression fractures which caused chronic pain syndrome Surgical History: 1. Cholecystectomy. 2. Bladder surgery. 3. Colonoscopy Pertinent Family History: She has a sister that of breast cancer and positive family history for diabetes. Past Social History: Does not smoke or drink. . Has one son. Tobacco Use: Never Smoker In the Past 12 Months, Have Used or Abuse Any of the Following Substance: None Medication / Allergies Home Medications: Home Medications Medication Instructions Recorded Confirmed Type Denosumab [Prolia] 1 ml SUBCUT every 6 months #0 ml 06/13/16 10/31/17 History Polyethylene Glycol 3350 [Miralax] 17 gm PO DAILY #30 powd.pack 12/11/16 10/31/17 Rx Clonazepam 1 tab PO TID PRN #90 tab 02/28/17 06/20/17 Clinic Oxycodone HCl/Acetaminophen 1 ea PO QID PRN #120 tab 04/24/17 06/20/17 Clinic [Percocet 5-325 Mg Tablet] esomeprazole magnesium 20 mg 40 mg PO QDAY cap 08/01/17 10/31/17 History capsule,delayed release clopidogrel 75 mg tablet 75 mg PO QDAY #30 tab 12/20/17 Rx levothyroxine 25 mcg tablet 25 mcg PO QDAY #30 tab 12/20/17 Rx amlodipine 5 mg tablet 5 mg PO QDAY #30 tab 05/06/18 Rx carvedilol 25 mg tablet 25 mg PO BID #60 tab 08/05/18 Rx lisinopril 40 mg tablet 40 mg PO BID #60 tab 10/17/18 Rx clonazepam 0.5 mg tablet 0.5 mg PO TID PRN #90 tab 11/25/18 Rx oxycodone-acetaminophen 5 mg-325 1 tab PO QID PRN #120 tab 11/25/18 Rx mg tablet Allergies/Adverse Reactions: Allergies Allergy/AdvReac Type Severity Reaction Status Date / Time mirtazapine [From Remeron] AdvReac Intermediate slept for Verified 09/03/18 10:54 days and speech deficit Review of Systems - Review of Systems All Systems: Reviewed & No Additional Complaints Except as Stated (Patient is a very poor historian and doesn't feel like talking at present time) - Respiratory Respiratory: DENIES: Negative System Review, Cough, Sputum, Dyspnea At Rest, Dyspnea with Exertion, Pleuritic Pain, Hemoptysis, Wheezing, Other, See HPI - Cardiovascular Cardiovascular: DENIES: Negative System Review, Chest Pain, Edema, Syncope, Palpitations, Orthopnea, Paroxysmal Nocturnal Dyspnea, Other, See HPI - Gastrointestinal Gastrointestinal / Abdominal: REPORTS: Abdominal Pain (Epigastric abdominal pain no guarding or rebound) Exam - General General Appearance: No Acute Distress, Cooperative - Head Head Exam: Normal Inspection, Normocephalic, Atraumatic - Eye Eye Exam: POSITIVE: PERRL, EOMI - Neck Neck Exam: Normal Inspection, Full ROM, No Tenderness, No Lymphadenopathy, No Thyromegaly, JVP is not Raised - Respiratory Respiratory Exam: POSITIVE: Clear to Auscultation - Bilaterally, Decreased Breath Sounds - Cardiovascular Cardiovascular Exam: POSITIVE: RRR, No Murmur, No Clicks, No Gallops, No Rubs, PMI Non-Displaced - GI/Abdominal Additional GI/Abdominal Exam Details: I cannot elucidate any abdominal pain on physical exam in any quadrant - Extremities Extremities Exam: POSITIVE: No Clubbing Present, No Edema Present, No Cyanosis Present - Neurological Neurological Exam: POSITIVE: Alert, Oriented x 3, No Facial Droop, Speech Intact / Clear - Psychiatric Psychiatric Exam: POSITIVE: Normal Affect - Integumentary Additional Integumentary Exam Details: Skin is very frail Results - Labs CBC and BMP: 12/08/18 20:17 12/08/18 20:05 Assessment and Plan - Patient Problems (1) Hypokalemia Current Visit: Yes Status: Acute Comment: Replace with IV fluids insert Mack catheter for acute output Code(s): E87.6 - Hypokalemia (2) Dehydration Current Visit: Yes Status: Acute Comment: Normal saline 75 an hour with 20 K Code(s): E86.0 - Dehydration (3) Abdominal pain Current Visit: No Status: Acute Comment: CT scan of the abdomen and pelvis are in progress Code(s): R10.9 - Unspecified abdominal pain (4) Generalized weakness Current Visit: Yes Status: Acute Comment: Consult PT OT and case management for possible placement if necessary Code(s): R53.1 - Weakness
[2018-12-08 21:51] LABS: BILIRUBIN,URINE NEGATIVE (NEG); CLARITY,URINE CLEAR (CLEAR); COLOR,URINE YELLOW; GLUCOSE, URINE (UA) NEGATIVE (NEG); OCCULT BLOOD,URINE MODERATE (NEG); PROTEIN,URINE NEGATIVE (NEG); UROBILINOGEN,URINE 0.2 mg/dL (0.2)
[2018-12-08 21:52] LABS: BACTERIA,URINE RARE; RBC,URINE 0-1 /hpf; SQUAMOUS EPITHELIAL CELL,UR RARE; URINE CRYSTALS FEW; URINE SAMPLE TYPE CATH SPECIMEN; WBC,URINE 0-1
[2018-12-08] MEDS ORDERED: ONDANSETRON 4 MG/2 ML VIAL IVP PRN (22:58)
[2018-12-08] MEDS ORDERED: LIDOCAINE W/ SODIUM BICARB 0.5 ML SYR SUBD PRN (22:58)
[2018-12-08] MEDS ORDERED: LIDOCAINE HCL 2 % 10 ML JELLY URO-JECT TOPICAL PRN (22:58)
[2018-12-08] MEDS ORDERED: Non-Formulary Drug (Denosumab [Prolia] 1 ML) SUBCUT SCH (22:58)
[2018-12-08] MEDS ORDERED: CALCIUM CARBONATE 500 MG (TUMS) CHEWABLE TABLET PO PRN (22:58)
--- NOTE | 2018-12-08 22:58 | DI ---
EXAM: CT Abdomen and Pelvis With Intravenous Contrast CLINICAL HISTORY: Abdominal pain TECHNIQUE: Axial computed tomography images of the abdomen and pelvis with intravenous contrast. COMPARISON: CT abdomen and pelvis dated 07/17/2017 FINDINGS: Lung bases: Bibasilar atelectasis. ABDOMEN: Liver: Unremarkable. Gallbladder and bile ducts: Mild intra-and extrahepatic bile duct dilatation likely secondary prior cholecystectomy. Pancreas: Unremarkable. Spleen: Unremarkable. Adrenals: Unremarkable. Kidneys and ureters: Unremarkable. Stomach and bowel: Unremarkable. PELVIS: Appendix: Appendix is unremarkable. Bladder: Urinary bladder is distended with trace amount gas, likely secondary to recent instrumentation. Reproductive: Unremarkable as visualized. ABDOMEN and PELVIS: Intraperitoneal space: Unremarkable. Bones/joints: Age-indeterminate mild height loss of T10 vertebral body. Remote compression deformities of L1-S1. No dislocation. Soft tissues: Unremarkable. Vasculature: Vascular calcifications. No abdominal aortic aneurysm. Lymph nodes: Unremarkable. IMPRESSION: 1. Distended urinary bladder. Trace gas, likely secondary recent instrumentation. 2. Age-indeterminate compression deformity with mild height loss of the T10 vertebral body.
[2018-12-08] MEDS: oxyCODONE-ACETAMINOPHEN 5-325 TAB PO PRN (23:32)
[2018-12-09 05:12] LABS: BASOPHILS # (AUTO) 0.01 10*3/UL; BASOPHILS % (AUTO) 0.1 % (0-1); EOSINOPHILS # (AUTO) 0.03 10*3/UL; EOSINOPHILS % (AUTO) 0.3 % (0-8); Hematocrit [HCT] 39.4 % (37.0-47.0); Hemoglobin [HGB] 12.9 g/dL (12.0-16.0); LYMPHOCYTES # (AUTO) 2.49 10*3/uL; MEAN CORPUSCULAR HEMOGLOBIN 27.8 PG (27-31); MEAN CORPUSCULAR HGB CONC 32.7 g/dL (33-37); MEAN CORPUSCULAR VOLUME 84.9 FL (81-99); MEAN PLATELET VOLUME 9.8 FL (7.4-12.2); MONOCYTES # (AUTO) 0.56 10*3/UL (0.3-0.8); MONOCYTES % (AUTO) 6.3 % (5-15); NEUTROPHILS # (AUTO) 5.73 10*3/UL; RED BLOOD COUNT 4.64 10^6/uL (4.20-5.40)
[2018-12-09 05:17] LABS: PLATELET MORPHOLOGY COMMENT NORMAL MORPHOLOGY (NORM); RBC MORPHOLOGY COMMENT NORMAL MORPHOLOGY (NORM); WBC MORPHOLOGY COMMENT NORMAL MORPHOLOGY (NORM)
[2018-12-09 05:23] LABS: BLOOD UREA NITROGEN 8 mg/dL (7-22); SERUM ALBUMIN 4.5 g/dL (3.5-4.8)
--- NOTE | 2018-12-09 05:38 | PDOC ---
General Adult HPI - General Chief Complaint: Chest Pain Stated Complaint: weakness, abdominal pain, nausea Date Seen by Provider: 12/08/18 Time Seen by Provider: 19:50 Source: POSITIVE: Patient, Spouse, EMS Exam Limitations: POSITIVE: No limitations Nurse's Notes Reviewed & Considered: Yes EMS Report Reviewed & Considered: Verbal - History of Present Illness Initial Comment: The patient is a 78-year-old female who arrives, along with her , by ambulance. The patient lives with her elderly and frail . They have become progressively less able to manage at home. Ambulance was called to bring both patient's to the emergency room. The patient reports an approximately 10 day history of progressive weakness and unsteadiness. She complains of feeling very "dizzy and shaky ". She has had nausea without vomiting. She states that she has had some left upper abdominal pain over the last day or so. No known fevers or chills. No vomiting. No focal neurologic symptoms. No vomiting, diarrhea, melena, hematochezia, hematemesis, dysuria or hematuria. Have you received a tetanus shot in the past 10 years?: Unknown Body Location Affected: REPORTS: Abdomen (Nausea and left upper abdominal discomfort), Other (Weakness, lightheadedness, progressive inability to care for herself and her ) Timing: REPORTS: Gradual, Getting Worse Duration: >1 week (7-10 days) Severity: Moderate Quality: REPORTS: "Pain" (Left upper abdominal area) Context: REPORTS: Other (As above) Modifying Factors: improves with: Nothing Similar Symptoms Previously: No Recent Care Received: REPORTS: Denies Any Prior Injuries Related to Current Complaint?: No - Patient Home Medications Home Medications: Home Medications Denosumab [Prolia] 1 ml SUBCUT every 6 months #0 ml 06/13/16 Polyethylene Glycol 3350 [Miralax] 17 gm PO DAILY #30 powd.pack 12/11/16 Clonazepam 1 tab PO TID PRN #90 tab 02/28/17 Oxycodone HCl/Acetaminophen [Percocet 5-325 Mg Tablet] 1 ea PO QID PRN #120 tab 04/24/17 esomeprazole magnesium 20 mg capsule,delayed release 40 mg PO QDAY cap 08/01/17 clopidogrel 75 mg tablet 75 mg PO QDAY #30 tab 12/20/17 levothyroxine 25 mcg tablet 25 mcg PO QDAY #30 tab 12/20/17 amlodipine 5 mg tablet 5 mg PO QDAY #30 tab 05/06/18 carvedilol 25 mg tablet 25 mg PO BID #60 tab 08/05/18 lisinopril 40 mg tablet 40 mg PO BID #60 tab 10/17/18 clonazepam 0.5 mg tablet 0.5 mg PO TID PRN #90 tab 11/25/18 oxycodone-acetaminophen 5 mg-325 mg tablet 1 tab PO QID PRN #120 tab 11/25/18 - Patient Allergies Allergies/Adverse Reactions: Allergies Allergy/AdvReac Type Severity Reaction Status Date / Time mirtazapine [From Remeron] AdvReac Intermediate slept for Verified 12/08/18 21:32 days and speech deficit Past Medical History - heen HEENT History: Hard of Hearing Additional HEENT History: WEARS GLASSES Cardiovascular History: Hypertension Respiratory History: Denies History Gastrointestinal History: GERD, Gallbladder Disease Additional Gastrointestinal History: IBS (?) Genitourinary History: Denies History Endocrine History: Hypothyroidism Musculoskeletal History: Osteoporosis, Back Pain, Limited ROM Prosthesis or Implant: No Additional Musculoskeletal History: COMPRESSION FXS BACK Neurological History: Denies History Blood Disorders: Denies History Psychiatric History: Anxiety Disorders History of Sexually Transmitted Diseases: No Female Reproductive History: Denies History Obstetrical History: Denies History Cancer History: Denies History In Past Year Been Physically Harmed or Verbally Threatened: No History of MDRO: No History of Other Communicable Diseases: No Tobacco Use: Never Smoker Alcohol Use: None In the Past 12 Months, Have Used or Abuse Any Substance: None Previous Surgical History: No Type / Date of Surgery: CHOLECYSTECTOMY Anesthesia Reactions: No Malignant Hyperthermia: No Significant Family History: No pertinent family hx Past Medical History Reviewed: Reviewed - No Changes ROS - Limitations ROS Limitations: No Limitations, Other (please comment) (Patient is a very vague historian) Constitution: REPORTS: Weakness Cardiovascular: REPORTS: Denies Cardiac Symptoms Respiratory: REPORTS: Denies Resp Symptoms Neurological: REPORTS: Denies Neuro Symptoms Gastrointestinal: REPORTS: Abdominal Pain (Left upper abdomen), Nausea Endocrine: REPORTS: Denies Symptoms Musculoskeletal: REPORTS: Denies MS Symptoms Genitourinary: REPORTS: Denies Symptoms Eyes: REPORTS: Denies Symptoms ENT: REPORTS: Denies Symptoms Skin: REPORTS: Denies Skin Symptoms Lympathic: REPORTS: Denies Lympathic Symptoms Immunologic: POSITIVE: Denies Symptoms Psychiatric: POSITIVE: Denies Psych Symptoms General Adult Exam - General Appearance General Appearance: POSITIVE: Alert, Cooperative, No Acute Distress, No Evidence of Trauma - HEENT HEENT: POSITIVE: Head Inspection Nml, Eyes Inspection Nml, Ears Inspection Nml, Nose Inspection Nml, Oral/Dental Inspect. Nml, Pharynx Inspect. Nml, PERRL, EOMI - Pupils Pupil Size: 3 mm: Bilateral - Neck Neck: POSITIVE: Normal Inspection, Thyroid Normal - Respiratory Respiratory: POSITIVE: No Respiratory Distress, Breath Sounds Normal, Chest Non- Tender - Cardiovascular Cardiovascular: POSITIVE: Regular Rate & Rhythm, No Murmur, No Gallop, PMI Normal Peripheral Pulses: Radial (R): 2+, Radial (L): 2+ - Abdomen Abdomen: Soft: (All Quadrants), Normal Bowel Sounds: (All Quadrants), Denies Tenderness: (RUQ), (RLQ), (LLQ), No Splenomegaly: (All Quadrants), No Hepatomegaly: (All Quadrants), No Guarding: (All Quadrants), No Rebound: (All Quadrants), No Palpable Pulse: (All Quadrants), No Palpabale Mass: (All Quadrants), No Distention: (All Quadrants), No Rigidity: (All Quadrants), Tender ness Noted: (LUQ) - Back Back: POSITIVE: Normal Inspection - Skin Skin: POSITIVE: Normal Color, Warm, Dry, No Rash - Extremities Extremity: Non-Tender: (All Extremities), Normal ROM: (All Extremities), Normal Inspection: (All Extremities) - Neurological / Psychological Neurological: POSITIVE: Affect Apporpriate, 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 Lab Results Reviewed by Me: Yes Lab Results:: Laboratory Results 12/08/18 12/08/18 12/08/18 20:05 20:05 20:05 WBC RBC Hgb Hct MCV MCH MCHC RDW Std Deviation RDW Coeff of Kira Plt Count MPV Immature Gran % (Auto) Neut % (Auto) Lymph % (Auto) [place] % (Auto) Eos % (Auto) Baso % (Auto) Immature Gran # (Auto) Neut # (Auto) Lymph # (Auto) [place] # (Auto) Eos # (Auto) Baso # (Auto) WBC Morphology Comment Plt Morphology Comment RBC Morph Comment D-Dimer < 0.19 Sodium 136 Potassium 3.5 L Chloride 98 Carbon Dioxide 23 Anion Gap 15 BUN 10 Creatinine 0.6 BUN/Creatinine Ratio 16.66 Glucose 143 H Calculated Osmolality 282.0 Lactic Acid Calcium 9.9 Total Bilirubin 0.4 AST 33 ALT 10 Alkaline Phosphatase 101 CK-MB (CK-2) 0.41 Troponin I < 0.012 C-Reactive Protein 0.7 NT-Pro-B Natriuret Pep 238 Total Protein 7.3 Albumin 4.5 Globulin 2.8 Albumin/Globulin Ratio 1.60 Amylase 98 Lipase 68 12/08/18 12/08/18 20:17 21:10 WBC 5.48 RBC 4.28 Hgb 12.0 Hct 37.1 MCV 86.7 MCH 28.0 MCHC 32.3 L RDW Std Deviation 40.9 RDW Coeff of Kira 13.2 Plt Count 199 MPV 9.6 Immature Gran % (Auto) 0.2 Neut % (Auto) 63.9 Lymph % (Auto) 29.2 [place] % (Auto) 5.8 Eos % (Auto) 0.7 Baso % (Auto) 0.2 Immature Gran # (Auto) 0.01 Neut # (Auto) 3.50 Lymph # (Auto) 1.60 [place] # (Auto) 0.32 Eos # (Auto) 0.04 Baso # (Auto) 0.01 WBC Morphology Comment Normal morphology Plt Morphology Comment Normal morphology RBC Morph Comment Normal morphology D-Dimer Sodium Potassium Chloride Carbon Dioxide Anion Gap BUN Creatinine BUN/Creatinine Ratio Glucose Calculated Osmolality Lactic Acid 2.0 Calcium Total Bilirubin AST ALT Alkaline Phosphatase CK-MB (CK-2) Troponin I C-Reactive Protein NT-Pro-B Natriuret Pep Total Protein Albumin Globulin Albumin/Globulin Ratio Amylase Lipase CBC and BMP: 12/09/18 04:36 12/09/18 04:36 EKG Interpreted/Reviewed By Me:: Yes (normal) EKG Interpretation:: POSITIVE: Normal Sinus Rhythm, Normal Rate, Normal Intervals, Normal [place], Normal QRS, Normal ST/T - Patient's Progress Pain Medication Addressed: POSITIVE: Not Applicable School/Work Release Addressed: POSITIVE: Not Applicable Re-Examine Time: 22:20 Re-Examine Comment: Results of laboratory and radiologic tests discussed with patient. Advised them not completely sure what the source of her symptoms are. Patient and her are getting to the point where they're not able to care for themselves safely at home. Case was discussed with hospitalist, Dr. Jaimes, and patient is admitted by Dr. Jaimes for further evaluation and treatment. Status: POSITIVE: Unchanged, Re-Examined Antibiotics Given: No - Consult Consult (If Yes, Name of Consulting MD & Time Called): Yes (Dr. Jaimes, hospitalist [id number],) Consulting MD will see pt:: POSITIVE: [facility] ED, [facility] Admit Counseled: POSITIVE: Patient, RE: Lab Results, RE: Radiology Results, RE: DX, RE: Need for F/U Patient Care Time - Estimated PCT Patient Care Time (In Minutes): 60 Vital Signs - Recent Vital Signs Vital Signs: Vital Signs (Last 8 hours) Temp Pulse Pulse Resp BP Pulse Ox 12/08/18 21:34 97.8 F 70 91 20 187/94 92 - VS Reviewed Vital Signs Reviewed: Yes Discharge Clinical Impression: Abdominal pain, Weakness, Nausea Condition: Good
[2018-12-09] MEDS: LEVOTHYROXINE 25 MCG TABLET PO SCH (05:55)
[2018-12-09] MEDS: oxyCODONE-ACETAMINOPHEN 5-325 TAB PO PRN ×3 (05:56→19:33)
[2018-12-09] MEDS: AmLODIPine Tab 5 MG TABLET PO SCH (08:36)
[2018-12-09] MEDS: CARVEDILOL 12.5 MG TABLET PO SCH ×2 (08:36→21:27)
[2018-12-09] MEDS: ClonazePAM Tab 1 MG TABLET PO PRN (08:36)
[2018-12-09] MEDS: LISINOPRIL 20 MG TABLET PO SCH ×2 (08:37→21:27)
[2018-12-09] MEDS: Esomeprazole DR 20mg Capsule PO SCH (08:37)
[2018-12-09] MEDS: CLOPIDOGREL 75 MG TABLET PO SCH (08:37)
--- NOTE | 2018-12-09 09:07 | PDOC(PROG) ---
Interval History: Patient is doing much better today no chest pain nausea vomiting she did take a shower this morning she is very frail and unable to take care of herself she states Objective : Data - Labs CBC and BMP: 12/09/18 04:36 12/09/18 04:36 Objective : Exam - General General Appearance: Cooperative - Respiratory Respiratory Exam: Clear to Auscultation - Bilaterally, Breathing Non Labored, Normal To Percussion, Normal to Percussion and Palpation - Cardiovascular Cardiovascular Exam: RRR, No Murmur, No Clicks, No Gallops, No Rubs, PMI Non- Displaced - GI/Abdominal GI/Abdominal Exam: Normal Bowel Sounds, Non Tender, Non Distended, Soft, No Masses, No Hepatomegaly, No Splenomegaly, No Organomegaly - Extremities Extremities Exam: No Clubbing Present, No Edema Present, No Cyanosis Present - Neurological Neurological Exam: Alert, Oriented x 3, No Facial Droop, Speech Intact / Clear Assessment and Plan - Patient Problems (1) Hypokalemia Current Visit: Yes Status: Acute Comment: This was replaced and resolved continue normal saline at 75 an hour without potassium Code(s): E87.6 - Hypokalemia (2) Dehydration Current Visit: Yes Status: Acute Comment: Continue IV fluids improving all labs were reviewed Code(s): E86.0 - Dehydration (3) Abdominal pain Current Visit: Yes Status: Acute Comment: Resolved CT scan of the abdomen and pelvis reviewed Code(s): R10.9 - Unspecified abdominal pain (4) Generalized weakness Current Visit: Yes Status: Acute Comment: PTOT was consulted and discussed with the social work lecturer for possible placement Code(s): R53.1 - Weakness
[2018-12-09] MEDS: POLYETHYLENE GLYCOL 3350 17 GM POWDER PO SCH (10:09)
[2018-12-09] MEDS: Sodium Chloride 0.9% 1,000 ML IV SCH ×2 (12:22→23:54)
--- NOTE | 2018-12-09 14:29 | OTI REPORT ---
Thank you for the referral of Halley Joyner. She was seen on 12/09/18 for an occupational therapy inpatient evaluation secondary to generalized weakness. SUBJECTIVE: The patient is a 78-year-old female who is being seen secondary to multiple medical conditions. The patient and her called the emergency room stating they were unable to care for themselves anymore. They are thinking about going to the [facility] as they are having increased difficulty. The patient states that her typically provides all of the care for her including cooking, helping her shower, and helping her dress her lower half. She states she can't do much of anything for herself. The patient reports that she weighs 80 pounds and she states she eats very little. PAST MEDICAL HISTORY: Past medical history can be found in the patient's medical record. OBJECTIVE FINDINGS: General observations: The patient was in bed upon the therapist's arrival. The patient is very small framed. The patient reports no eating difficulties other than if the food is hard to chew. She states she does not typically cough or choke on food. Activities of daily living: The patient requires max assist for lower extremity dressing. After set up she is able to dress her upper extremities independently. The patient requires mod to max assist to shower self. Her ability to use the telephone was observed. She was able to call familiar numbers. The patient was mostly aware of her medication management. She did need her medications crushed and placed in applesauce. Range of motion: Upper extremity active range of motion was 0 to 110 degrees bilaterally for shoulder flexion. Strength: Upper extremity strength is 3+/5 for shoulder flexion, 3/5 for abduction, 3+/5 for elbow flexion/extension, and 3+/5 for wrist flexion/extension. Transfers: The patient requires min assist for balance when completing functional transfers. Ambulation: The patient did walk with a front wheeled walker to keep her balance. ASSESSMENT: It would be beneficial for the patient to receive 24-hour care. Right now the patient's is also in the hospital and is having increased difficulty of caring for himself. The patient typically does not eat a lot but has to have very soft foods. Problem List: Decreased ability to complete ADLs Decreased ability to complete functional transfers Patient needs her medications crushed and put in a puree Short-Term Goals: To be met by discharge from inpatient: Patient will be able to dress self with min assist. Patient will increase upper extremity strength to 4+/5. Patient will be able to complete a toilet transfer independently. Patient will be able to complete a shower transfer with min assist. Patient will be able to wash hair and brush hair with min assist. Long-Term Goals: To be met following discharge from inpatient: Patient and her will find 24-hour care to assist with basic ADLs and self care. TREATMENT PLAN: Patient will be seen B.I.D during the week and one time per day over the weekend as an inpatient to address the above goals and objectives. Rowan Saunders is working on possible admittance to the [facility]. INITIAL TREATMENT: Treatment today consisted of the initial evaluation followed by the patient coming from supine to sit with min assist. While sitting edge of bed the patient was able to complete a sit to stand transfer with min assist. The patient ambulated to the shower room which was approximately 20 feet away with min assist for balance and assistance to move the walker appropriately. The patient was able to sit on shower bench and complete showering activities. The patient was able to wash her front, peroneal area, and legs to knees. She needed max assist for washing back, washing hair, and washing feet. The patient then worked on dressing self. She was able to dress upper extremities independently. She was able to don lower extremity clothing with max assist to start the process. She was able to pull pants up to waist with min assist. The patient was dependent with donning socks. The patient then ambulated back to her room and was able to get into bed with min assist. She required max assist for brushing hair. The patient requires a lot of increased time to process information and get through tasks physically. KEVIN
--- NOTE | 2018-12-09 14:58 | PTI REPORT ---
Thank you for the referral of Halley Joyner. She was seen on 12/09/18 for an inpatient evaluation secondary to generalized weakness. SUBJECTIVE: The patient is a 78-year-old female who states that she came to the hospital secondary to anxiety and her getting admitted to the hospital as well. The patient states that she is doing a little better today in regards to her anxiety as her is feeling better and they are able to share a room here in the hospital. The patient states that she is unsure what their next living situation will be as her has been her primarly assistant chief nursing officer for quite some time and helps out with most of her ADLs and iADLs. Per report from nursing, the patient and her will most likely be going over to the [facility] as they are requiring an increased need in skilled care vs. being on their own at this time. The patient states that prior to admittance to the hospital she was ambulating with a front wheeled walker and was able to ambulate in home distances. The patient denies any recent falls over the last three months and states that she is able to get in and out of bed herself. PAST MEDICAL HISTORY: Past medical history can be found in the patient's medical record. OBJECTIVE FINDINGS: General observations: The patient was alert and oriented to setting upon PT arrival. The patient was a little reluctant to participate with therapy, but after talking for some time, she did agree to go through the evaluation this morning. The patient states that she is very exhausted from getting to the hospital last night and states she did not get much sleep last night. Bed mobility: The patient was able to transfer from supine to seated edge of bed with head of bed elevated. She did require additional time to complete transfer but was able to do so without assistance. The patient demonstrated fair seated edge of bed balance with hand hold assist on the bed. The patient was able to transfer back into bed, requiring additional time and only assist to help with the covers and the pillows. Strength: Manual muscle test was performed in a seated position. The patient demonstrated 3/5 bilateral hip strength and 4/5 bilateral knee and ankle strength. Transfers: The patient transferred from sitting to standing position with contact guard assist x1 for safety. Ambulation: The patient was able to ambulate with front wheeled walker x50 feet with contact guard assist x1 for safety. ASSESSMENT: The patient has fair rehab potential secondary to her age and past medical history. Problem List: Generalized weakness Decreased endurance/activity tolerance Short-Term Goals: To be met by discharge from inpatient: Patient will be able to ambulate at least 150 feet safely with front wheeled walker. Patient will be able to tolerate 30 minutes of physical therapy activity for general strengthening and balance. Long-Term Goals: To be met following discharge from inpatient: Patient most likely will go to the [facility] with her . It will be advised that they continue to receive therapy to further improve strength and functional mobility. TREATMENT PLAN: Patient will be seen B.I.D during the week and one time per day over the weekend as an inpatient to address the above goals and objectives. INITIAL TREATMENT: Treatment today consisted of the initial evaluation. Following treatment the patient was left in bed with call light within reach and bed alarm set. MTDD
--- NOTE | 2018-12-09 16:17 | OT.PROG ---
Progress Note Progress Note: pt refused therapy services this afternoon. pt did not give a reason for refusal. will attempt again tomorrow 12/10/18
[2018-12-10] MEDS: oxyCODONE-ACETAMINOPHEN 5-325 TAB PO PRN ×4 (01:24→19:03)
[2018-12-10] MEDS: LEVOTHYROXINE 25 MCG TABLET PO SCH (04:41)
[2018-12-10] MEDS: ACETAMINOPHEN 325 MG TABLET PO PRN ×2 (04:43→16:28)
[2018-12-10] MEDS: ClonazePAM Tab 1 MG TABLET PO PRN ×2 (07:05→16:28)
[2018-12-10] MEDS: LISINOPRIL 20 MG TABLET PO SCH ×2 (08:27→20:38)
[2018-12-10] MEDS: AmLODIPine Tab 5 MG TABLET PO SCH (08:27)
[2018-12-10] MEDS: CLOPIDOGREL 75 MG TABLET PO SCH (08:27)
[2018-12-10] MEDS: CARVEDILOL 12.5 MG TABLET PO SCH ×2 (08:27→20:38)
[2018-12-10] MEDS: Esomeprazole DR 20mg Capsule PO SCH (08:27)
[2018-12-10] MEDS: POLYETHYLENE GLYCOL 3350 17 GM POWDER PO SCH ×2 (08:28→09:07)
--- NOTE | 2018-12-10 11:34 | OT.PROG ---
Progress Note Progress Note: S: pt stated that her back hurt. O: tx consisted of bed mobility from supine to EOB, AROM of flexion, rows and horizontal abduction x10 each, ADL task of hair brushing with MAX A due to weakness. A: pt did not want to do much for therapy this morning. pt says she was cold. P: continue POC
--- NOTE | 2018-12-10 14:52 | PT.PROG ---
Progress Note Progress Note: S. Patient stated that she is feeling stiff and sore this morning, however agreed to go for a walk. O. Patient ambulated 300 feet around the nurses station then was left in bed with alarm and call light. A. Patient tolerated ambulation well she continues to have weakness and would continue to benefit from skilled therapy to increase strength, endurance and safety at this time. P. Continue POC, plan to Discharge to [facility] for further therapy.
--- NOTE | 2018-12-10 14:57 | PT.PROG ---
Progress Note Progress Note: S. Patient stated that she is feeling better this afternoon. O. Patient ambulated 300 feet around the nurses station then performed seated long arc quads, marches, heel toe raises, and pillow squeezes all x 10 bilaterally then was left in bed with alarm and call light. A. Patient tolerated ambulation and exercise well she continues to be weak and fatigues easily, she would continue to benefit from skilled therapy to increase strength, endurance and safety at this time. P. Continue POC, plan to Discharge to [facility] for further therapy.
--- NOTE | 2018-12-10 15:24 | OT.PROG ---
Progress Note Progress Note: S: pt reports that she is cold and was ok with getting up for therapy. O: pt completed UE aROM activities in shoulder flex,ext rows, e/ROT, shoulder press and scap squeezes x15 with BUE's to increase motion and improve overall function of UE's. She completed bed mobility into bed INd. She was left in upright position in bed. A: pt participated much better today. She may continue to benefit from 24 hr care to address strengthening and overall care. P: continue per pOC.
--- NOTE | 2018-12-10 15:53 | PDOC(PROG) ---
Date of Service: 12/10/18 Time of Service: 15:47 Interval History: No chest pain, shortness breath, nausea or vomiting. Patient states that she has a little bit of an upset stomach after she eats. She states that has been chronic. We have done EGD and colonoscopy on this patient in the past with negative results. 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 Objective : Data - Labs CBC and BMP: 12/09/18 04:36 12/09/18 04:36 Objective : Exam - General General Appearance: No Acute Distress, Cooperative Additional General Exam Details: Vital Signs - Last Taken Temperature 97.3 F 12/10/18 13:00 Pulse Rate 70 12/10/18 13:00 Respiratory Rate 20 12/10/18 13:00 Blood Pressure 162/76 12/10/18 13:00 Pulse Ox 95 12/10/18 13:00 - Eye Eye Exam: No Scleral Icterus - ENT ENT Exam: Mucous Membranes Moist - Neck Neck Exam: JVP is not Raised - Respiratory Respiratory Exam: Clear to Auscultation - Bilaterally, Breathing Non Labored - Cardiovascular Cardiovascular Exam: RRR, No Murmur, No Clicks, No Gallops, No Rubs, No JVD - GI/Abdominal GI/Abdominal Exam: Normal Bowel Sounds, Non Tender, Non Distended, Soft - Extremities Extremities Exam: No Clubbing Present, No Edema Present, No Cyanosis Present - Neurological Neurological Exam: Alert, Oriented x 3, No Facial Droop, Speech Intact / Clear, Moves All Extremities Equally - Psychiatric Psychiatric Exam: Normal Affect, Normal Mood Assessment and Plan - Patient Problems (1) Failure to thrive syndrome, adult Current Visit: No Status: Acute (2) Generalized weakness Current Visit: Yes Status: Acute Code(s): R53.1 - Weakness (3) Abdominal pain Current Visit: Yes Status: Resolved Code(s): R10.9 - Unspecified abdominal pain (4) Hypokalemia Current Visit: Yes Status: Resolved Code(s): E87.6 - Hypokalemia (5) Dehydration Current Visit: Yes Status: Resolved Code(s): E86.0 - Dehydration (6) Polymyalgia rheumatica Current Visit: Yes Status: Chronic Code(s): M35.3 - Polymyalgia rheumatica - Assessment / Plan Additional Assessment/Plan Details: Given her complaints of continued dysphasia, go ahead and check a barium esophagram tomorrow. It's not clear, but I wonder about whether or not the ivanna ent would need a repeat EGD with dilation. Continue proton pump inhibitor. Stop fluids at this time. Patient had a prior TIA so we will continue Plavix for now. Could consider removing that down to an aspirin, I think that would require further discussion with the patient, her family, and so forth. PT and OT. Eventual senior care facility placement this .
[2018-12-11] MEDS: oxyCODONE-ACETAMINOPHEN 5-325 TAB PO PRN ×4 (00:48→19:40)
[2018-12-11] MEDS: LEVOTHYROXINE 25 MCG TABLET PO SCH (04:39)
[2018-12-11] MEDS: LISINOPRIL 20 MG TABLET PO SCH ×3 (11:32→21:51)
[2018-12-11] MEDS: AmLODIPine Tab 5 MG TABLET PO SCH (11:33)
[2018-12-11] MEDS: Esomeprazole DR 20mg Capsule PO SCH (11:33)
[2018-12-11] MEDS: CLOPIDOGREL 75 MG TABLET PO SCH (11:33)
[2018-12-11] MEDS: CARVEDILOL 12.5 MG TABLET PO SCH ×3 (11:33→21:51)
[2018-12-11] MEDS: POLYETHYLENE GLYCOL 3350 17 GM POWDER PO SCH (11:34)
--- NOTE | 2018-12-11 13:43 | DI ---
XR ESOPHAGRAM,12/11/2018 7:00 AM: Clinical History: Gastroesophageal wrist flexed disease, dysphagia and history of gastroesophageal st ricture. Previous Exam: None at this facility. Findings: Multiple images from an upper gastrointestinal series are obtained. Images are limited due to patient 's inability Dimple flat on the table due to a fracture. The esophagus demonstrates normal course and caliber throughout. There was passage of contrast readil y through the gastroesophageal junction. There is diffuse osteopenia of the spine. Evaluation of the pharynx in AP and lateral projection is within normal limits. Visualized portions of the stomach are unremarkable but evaluation is limited. The lungs appear clear . Impression: Mild irregular tapering of the distal esophagus most consistent with a persisting distal gastroesopha geal junction stricture.
--- NOTE | 2018-12-11 15:47 | PDOC(PROG) ---
Date of Service: 12/11/18 Time of Service: 15:41 Interval History: still feels like she has nausea. barium swallow noted for irregularities consistent with probable stricture. no chest pain, no SOB. no vomiting. Objective : Data - Labs CBC and BMP: 12/09/18 04:36 12/09/18 04:36 - Imaging X-Ray Status: Report Reviewed by Me (barium esophagram noted for stricture.) Objective : Exam - General General Appearance: No Acute Distress, Cooperative Additional General Exam Details: Vital Signs - Last Taken Temperature 97.7 F 12/11/18 13:00 Pulse Rate 75 12/11/18 13:00 Respiratory Rate 16 12/11/18 13:00 Blood Pressure 97/55 12/11/18 13:00 Pulse Ox 95 12/11/18 13:00 - Eye Eye Exam: No Scleral Icterus - ENT ENT Exam: Mucous Membranes Moist - Neck Neck Exam: JVP is not Raised - Respiratory Respiratory Exam: Clear to Auscultation - Bilaterally, Breathing Non Labored - Cardiovascular Cardiovascular Exam: RRR, No Murmur, No Clicks, No Gallops, No Rubs, No JVD - GI/Abdominal GI/Abdominal Exam: Normal Bowel Sounds, Non Tender, Non Distended, Soft - Extremities Extremities Exam: No Clubbing Present, No Edema Present, No Cyanosis Present - Neurological Neurological Exam: Alert, Oriented x 3, No Facial Droop, Speech Intact / Clear, Moves All Extremities Equally - Psychiatric Psychiatric Exam: Normal Affect, Normal Mood Assessment and Plan - Patient Problems (1) Esophageal stricture Current Visit: Yes Status: Acute Code(s): K22.2 - Esophageal obstruction (2) Failure to thrive syndrome, adult Current Visit: No Status: Acute (3) Generalized weakness Current Visit: Yes Status: Acute Code(s): R53.1 - Weakness (4) Abdominal pain Current Visit: Yes Status: Resolved Code(s): R10.9 - Unspecified abdominal pain (5) Hypokalemia Current Visit: Yes Status: Resolved Code(s): E87.6 - Hypokalemia (6) Dehydration Current Visit: Yes Status: Resolved Code(s): E86.0 - Dehydration (7) Polymyalgia rheumatica Current Visit: Yes Status: Chronic Code(s): M35.3 - Polymyalgia rheumatica - Assessment / Plan Additional Assessment/Plan Details: will talk with surgery regarding EGD with dilation. SNF soon?
--- NOTE | 2018-12-11 16:22 | PT.PROG ---
Progress Note Progress Note: Patient refused therapy this morning due to having a test and not getting to eat breakfast.
--- NOTE | 2018-12-11 16:23 | PT.PROG ---
Progress Note Progress Note: Patient refused therapy this afternoon, stating she is too tired and weak.
[2018-12-11] MEDS: ACETAMINOPHEN 325 MG TABLET PO PRN (16:59)
[2018-12-12] MEDS: oxyCODONE-ACETAMINOPHEN 5-325 TAB PO PRN ×3 (01:28→12:46)
[2018-12-12] MEDS: LEVOTHYROXINE 25 MCG TABLET PO SCH (05:44)
[2018-12-12] MEDS ORDERED: Esomeprazole DR 20mg Capsule PO SCH (09:00)
[2018-12-12] MEDS: LISINOPRIL 20 MG TABLET PO SCH (09:03)
[2018-12-12] MEDS: CLOPIDOGREL 75 MG TABLET PO SCH (09:04)
[2018-12-12] MEDS: CARVEDILOL 12.5 MG TABLET PO SCH (09:04)
[2018-12-12] MEDS: AmLODIPine Tab 5 MG TABLET PO SCH (09:04)
[2018-12-12] MEDS: POLYETHYLENE GLYCOL 3350 17 GM POWDER PO SCH (10:58)
[2018-12-12] MEDS: Esomeprazole DR 20mg Capsule PO SCH (10:59)
--- NOTE | 2018-12-12 11:14 | DCSUMMARY ---
Hospitalization Summary Admit Date: 12/08/2018 Discharge Date: 12/12/18 Primary Diagnosis:: failure to thrive, adult Hospital Course: This a very pleasant 78-year-old female that has had failure to thrive over the last couple of years accompanied with decreased weight. She is actually gained about 3-5 pounds since her admission in 2016, but she came in with severe aches and pains from polymyalgia rheumatica and arthritis symptoms and inability to care for herself. She was comfortable by her who normally takes care of her but his health as deteriorated to the point where he can the longer take care of the patient. She was admitted, she was found to have recurrent nausea and a barium esophagram showed distal esophageal stricture. She was offered EGD with dilation, but she prefers to see Dr. Best on an outpatient basis to discuss further. She is not vomiting, and has not had any other "red flag" symptoms to suggest that there is urgency to do this procedure today and so I think that is reasonable for her to sit down and plan this out in the office. She has had a history of a TIA and is on Plavix and will need to come off of that prior to the procedure. Through the hospital stay, she worked with PT and OT, but was clear that she would benefit from continued care and the patient and her have both opted to go to [facility] for acute rehabilitation, and possible long- term care. Today, nausea is persistent, no vomiting. No chest pain and no shortness of breath. Assessment and Plan: 1. As per discharge assessments noted 2. Disposition: Patient is discharged to [facility]. 3. Condition on discharge, stable and improved. 4. Diet: regular diet 5. Activities: resume normal activities, PT and OT to [facility] 6. Follow-Up: 1. Dr. Motta will see the patient 2. Surgery on 12/26/2018 for evaluation of esophageal stricture and planning for EGD and dilation 7. Medications at the Time of Discharge: Home Medications Medication Instructions Recorded Confirmed Type Denosumab [Prolia] 1 ml SUBCUT every 6 months #0 ml 06/13/16 12/08/18 History Clonazepam 1 tab PO TID PRN #90 tab 02/28/17 06/20/17 Clinic Oxycodone HCl/Acetaminophen 1 ea PO QID PRN #120 tab 04/24/17 06/20/17 Clinic [Percocet 5-325 Mg Tablet] clopidogrel 75 mg tablet 75 mg PO QDAY #30 tab 12/20/17 12/08/18 Rx levothyroxine 25 mcg tablet 25 mcg PO QDAY #30 tab 12/20/17 12/08/18 Rx amlodipine 5 mg tablet 5 mg PO QDAY #30 tab 05/06/18 12/08/18 Rx carvedilol 25 mg tablet 25 mg PO BID #60 tab 08/05/18 12/08/18 Rx lisinopril 40 mg tablet 40 mg PO BID #60 tab 10/17/18 12/08/18 Rx clonazepam 0.5 mg tablet 0.5 mg PO TID PRN #90 tab 11/25/18 12/08/18 Rx oxycodone-acetaminophen 5 mg-325 1 tab PO QID PRN #120 tab 11/25/18 12/08/18 Rx mg tablet Acetaminophen [Tylenol] 650 mg PO Q6H PRN tab 12/12/18 Rx Esomeprazole Magnesium [Nexium] 20 mg PO BID capsule. 12/12/18 Rx oxyCODONE/APAP 5/325 Tab 1 tab PO QID PRN #90 tab 12/12/18 Rx [Percocet 5/325 Tab] I have written a prescription for 90 tablets of Percocet. I will not do long- term care management of the Percocet, but this will enable her to have a prescription starting out at the custodial. 8. Time, care, counseling and coordination of care for this discharge is greater than 30 minutes. Exam - Vitals Vital Signs: Vital Signs Temperature 97.5 F Temperature Source Temporal Artery Scan Pulse Rate [Pulse Oximeter] 61 Pulse Rate 69 Respiratory Rate 16 Blood Pressure [Left Arm] 137/74 Blood Pressure [Right Arm] 102/49 Blood Pressure 164/93 Pulse Ox 93 Oxygen Delivery Method Room Air Height 5 ft 2 in Weight 80 lb 6.4 oz - General General Appearance: No Acute Distress, Cooperative, Thin - Head Head Exam: Normal Inspection, Normocephalic, Atraumatic - Eye Eye Exam: POSITIVE: No Scleral Icterus - ENT ENT Exam: POSITIVE: Mucous Membranes Moist - Neck Neck Exam: JVP is not Raised - Respiratory Respiratory Exam: POSITIVE: Clear to Auscultation - Bilaterally, Breathing Non Labored - Cardiovascular Cardiovascular Exam: POSITIVE: RRR, No Murmur, No Clicks, No Gallops, No Rubs, No JVD - GI/Abdominal GI/Abdominal Exam: POSITIVE: Normal Bowel Sounds, Non Tender, Non Distended, Soft - Extremities Extremities Exam: POSITIVE: No Clubbing Present, No Edema Present, No Cyanosis Present - Neurological Neurological Exam: POSITIVE: Alert, Oriented x 3, No Facial Droop, Speech Intact / Clear, Moves All Extremities Equally - Psychiatric Psychiatric Exam: POSITIVE: Normal Affect, Normal Mood Data Peritnent Studies: 12/08/18 12/09/18 12/09/18 20:05 04:36 04:36 WBC Hgb Hct Plt Count Sodium 140 Potassium 4.1 Chloride 103 Carbon Dioxide 24 Anion Gap 13 BUN 8 Creatinine 0.5 Glucose 97 Calculated Osmolality 287.0 Calcium 10.2 Total Bilirubin 0.5 AST 25 ALT 17 D Alkaline Phosphatase 86 Troponin I < 0.012 < 0.012 Total Protein 7.5 Albumin 4.5 Globulin 3.0 Albumin/Globulin Ratio 1.50 12/09/18 04:36 WBC 8.83 Hgb 12.9 Hct 39.4 Plt Count 232 Sodium Potassium Chloride Carbon Dioxide Anion Gap BUN Creatinine Glucose Calculated Osmolality Calcium Total Bilirubin AST ALT Alkaline Phosphatase Troponin I Total Protein Albumin Globulin Albumin/Globulin Ratio Procedures: [address] [facility] [place] [address] PH: DD: [phone] FAX: [phone] ~DIAGNOSTIC IMAGING REPORT~ Patient: Halley Joyner : 1940 Sex: F Age: 78 Exam Name: XR ESOPHAGRAM Exam Date: 12/11/18 Report # : [id number] CPT Code: 35831 EMR/MR #: [id number] Ordering: KENNEY RAMIREZ Admiting: MINGO PAZ MD. Primary: Kevin Motta MD Attending: MINGO PAZ MD. Signed XR ESOPHAGRAM,12/11/2018 7:00 AM: Clinical History: Gastroesophageal wrist flexed disease, dysphagia and history of gastroesophageal stricture. Previous Exam: None at this facility. Findings: Multiple images from an upper gastrointestinal series are obtained. Images are limited due to patient's inability Dimple flat on the table due to a fracture. The esophagus demonstrates normal course and caliber throughout. There was passage of contrast readily through the gastroesophageal junction. There is diffuse osteopenia of the spine. Evaluation of the pharynx in AP and lateral projection is within normal limits. Visualized portions of the stomach are unremarkable but evaluation is limited. The lungs appear clear. Impression: Mild irregular tapering of the distal esophagus most consistent with a persisting distal gastroesophageal junction stricture. Dictated By: 12/11/18 1335 JESSICA CLARKE MD. Signed By: 12/11/18 1343 JESISCA CLARKE MD. [address] [facility] [place] [address] PH: DD: [phone] FAX: [phone] ~DIAGNOSTIC IMAGING REPORT~ Patient: Halley Joyner : 1940 Sex: F Age: 78 Exam Name: CT Abdomen/Pelvis W Contrast Exam Date: 12/08/18 Report # : [id number] CPT Code: 09298 EMR/MR #: [id number] Ordering: YUMIKO BERNAL Admiting: MINGO PAZ MD. Primary: Kevin Motta MD Attending: MINGO PAZ MD. - Signed EXAM: CT Abdomen and Pelvis With Intravenous Contrast CLINICAL HISTORY: Abdominal pain TECHNIQUE: Axial computed tomography images of the abdomen and pelvis with intravenous contrast. COMPARISON: CT abdomen and pelvis dated 07/17/2017 FINDINGS: Lung bases: Bibasilar atelectasis. ABDOMEN: Liver: Unremarkable. Gallbladder and bile ducts: Mild intra-and extrahepatic bile duct dilatation likely secondary prior cholecystectomy. Pancreas: Unremarkable. Spleen: Unremarkable. Adrenals: Unremarkable. Kidneys and ureters: Unremarkable. Stomach and bowel: Unremarkable. PELVIS: Appendix: Appendix is unremarkable. Bladder: Urinary bladder is distended with trace amount gas, likely secondary to recent instrumentation. Reproductive: Unremarkable as visualized. ABDOMEN and PELVIS: Intraperitoneal space: Unremarkable. Bones/joints: Age-indeterminate mild height loss of T10 vertebral body. Remote compression deformities of L1-S1. No dislocation. Soft tissues: Unremarkable. Vasculature: Vascular calcifications. No abdominal aortic aneurysm. Lymph nodes: Unremarkable. IMPRESSION: 1. Distended urinary bladder. Trace gas, likely secondary recent instrumentation. 2. Age-indeterminate compression deformity with mild height loss of the T10 vertebral body. Dictated By: [address] [facility] [place] [address] PH: DD: [phone] FAX: [phone] ~DIAGNOSTIC IMAGING REPORT~ Patient: Halley Joyner : 1940 Sex: F Age: 78 Exam Name: XR CXR 1VW Exam Date: 12/08/18 Report # : [id number] CPT Code: 69972 EMR/MR #: [id number] Ordering: YUMIKO BERNAL Admiting: Primary: Kevin oMtta MD Attending: Signed AP CHEST X-RAY, 12/08/2018 8:17 PM : Clinical History: Chest pain. Previous Exam: None at this facility. Soft Tissues: No acute soft tissue abnormality. The patient is rotated toward her right side. Bones: Normal. Heart: Normal heart. Lungs: No infiltrates. Effusion(s): None. Mediastinum: Normal mediastinum. Nodules: No pulmonary nodules. Reading: Normal chest x-ray. Dictated By: 12/08/182105 JHONY ABAD MD. Signed By: 12/08/182110 JHONY ABAD MD. Patient Problems - Patient Problem List (1) Failure to thrive syndrome, adult Current Visit: No Status: Acute Category: Medical (2) Esophageal stricture Current Visit: Yes Status: Acute Code(s): K22.2 - Esophageal obstruction Category: Medical (3) Generalized weakness Current Visit: Yes Status: Acute Code(s): R53.1 - Weakness Category: Medical (4) Abdominal pain Current Visit: Yes Status: Resolved Code(s): R10.9 - Unspecified abdominal pain Category: Medical (5) Hypokalemia Current Visit: Yes Status: Resolved Code(s): E87.6 - Hypokalemia Category: Medical (6) Dehydration Current Visit: Yes Status: Resolved Code(s): E86.0 - Dehydration Category: Medical (7) Polymyalgia rheumatica Current Visit: Yes Status: Chronic Code(s): M35.3 - Polymyalgia rheumatica Category: Medical (8) Hypothyroidism Current Visit: Yes Status: Acute Code(s): E03.9 - Hypothyroidism, unspecified Qualifiers: Hypothyroidism type: acquired Qualified Code(s): E03.9 - Hypothyroidism, unspecified Category: Medical (9) History of TIA (transient ischemic attack) Current Visit: Yes Status: Acute Code(s): Z86.73 - Personal history of transient ischemic attack (TIA), and cerebral infarction without residual deficits Category: Medical (10) Hypertension Current Visit: Yes Status: Acute Code(s): I10 - Essential (primary) hypertension Category: Medical (11) Chronic back pain Current Visit: Yes Status: Acute Code(s): M54.9 - Dorsalgia, unspecified; G89.29 - Other chronic pain Qualifiers: Back pain location: low back pain Back pain laterality: bilateral Sciatica presence: without sciatica Qualified Code(s): M54.5 - Low back pain; G89.29 - Other chronic pain Category: Medical (12) Osteoporosis Current Visit: Yes Status: Acute Code(s): M81.0 - Age-related osteoporosis without current pathological fracture Qualifiers: Osteoporosis type: age-related Presence of current pathological fracture: without current pathological fracture Qualified Code(s): M81.0 - Age-related osteoporosis without current pathological fracture Category: Medical (13) Chronic pain syndrome Current Visit: Yes Status: Chronic Code(s): G89.4 - Chronic pain syndrome Category: Medical (14) Generalized anxiety disorder Current Visit: Yes Status: Chronic Code(s): F41.1 - Generalized anxiety disorder Category: Medical
[2018-12-12 13:08] VITALS: BP 133/100; RESP 20; TEMP 97.8; O2SAT 98
== END 2018-12-12 13:42 | DRG 641 ==
LOC: ER 19:42 → MED/SURG 21:16
PROVIDERS: ADMIT Internal Medicine; ATTEND Internal Medicine